=== PATIENT | male | born 1970 | race Caucasian/White ===

== ENCOUNTER → 2020-07-22 09:08 | Outpatient (CLI) | payer OTHER, MEDICAID, SELFPAY ==
--- NOTE | 2020-07-22 09:17 | DI.CT.S_ITS ---
PROCEDURE: CT SOFT TISSUE NECK WO/W CON INDICATIONS: Localized swelling, mass and lump, neck. The patient reported possible thyroid gland lesion. TECHNIQUE: Before and after the administration of intravenous contrast, 2.0 mm axial sections acquired through the neck and down to the saroj. Additional 2.0 mm coronal and sagittal reformats were generated of the contrast enhanced images. For radiation dose reduction, the following was used: automated exposure control. A CT surface marker was placed in the area of patient's clinical concern, right neck region anteriorly. This is located at approximately the junction of the middle and lower thirds of the neck and on axial imaging can be seen on series 2, image 50. COMPARISON: Outside Film, CT, CT SOFT TISSUE NECK WITH CONTRAST, 10/04/2018, 10:38. [facility], RG, CT SOFT TISSUE NECK WITH CONTRAST, 10/04/2018, 10:38. FINDINGS: Image quality: Excellent. Thyroid: Normal enhancement bilaterally, no mass or cyst is found. Lymph nodes: No enlarged lymph nodes seen throughout the neck. Vessels: Visualized vasculature appears patent. Neck spaces: The oropharynx, nasopharynx, and pharynx demonstrate no mucosal lesions. The vocal cords, false vocal cords, pyriform sinuses, epiglottis, vallecula, and tongue base all appear normal. Extramucosal spaces appear unremarkable. Glands: The parotid and submandibular glands appear normal. Below the inferior margin of the right parotid gland, just below the angle of the jaw on the right, there is a single identified apparent surgical clips noted on series 5, image 40, at the anterior border of the sternocleidomastoid muscle. Several small lymph nodes in that area are also present, symmetric in shape and size with those on the left. Miscellaneous: Visualized lungs appear clear. Superficial soft tissues appear normal. Bones: No suspicious bony lesions. Visualized sinuses and mastoids appear unremarkable. IMPRESSION: Through the salivary glands and salivary duct structures no calculus or inflammation, or dilated duct, is found. A CT surface marker was placed on the right as directed by the patient to the area of maximal clinical concern. Beneath this area no cystic or solid mass is found and no inflammatory process is identified. Single suspected surgical clip identified on the right, at the anterior border of the right sternocleidomastoid muscle, but this is below the level of the inferior tip of the right parotid gland and no adjacent inflammatory or neoplastic process is found. Dictated by: Keron Leroy M.D. on 07/22/2020 at 16:01 Approved by: Keron Leroy M.D. on 07/22/2020 at 16:10
== END ==
PROVIDERS: Referring Provider Otolaryngology; Visit Provider Otolaryngology
DX: R22.1 Localized swelling, mass and lump, neck (principal)
CPT/HCPCS: 70492; Q9967

== ENCOUNTER → 2022-12-13 08:43 | Outpatient (CLI) | payer OTHER, MEDICAID, SELFPAY ==
[2022-12-17 13:03] LABS: C1 Esterase Inhibitor 34 mg/dL (21-39)
[2022-12-19 11:49] LABS: C1 Esterase Inhibitor, Func 90 (.)
== END ==
PROVIDERS: Referring Provider Allergy & Immunology; Visit Provider Allergy & Immunology
DX: T78.3XXA Angioneurotic edema, initial encounter (principal)
CPT/HCPCS: 36415; 86160; 86161; 86832

== ENCOUNTER 2022-12-23 11:10 | Observation (INO) | payer OTHER, MEDICAID, SELFPAY ==
[2022-12-23] VITALS (10 sets, daily range): BP systolic 123–163; BP diastolic 71–89; PULSE 61–80; RESP 16–21; TEMP 35.9–36.4; O2SAT 93–97; BMI 36.6
--- NOTE | 2022-12-23 11:39 | DI.CT.S_ITS ---
PROCEDURE: CT SOFT TISSUE NECK W CON INDICATIONS: swelling TECHNIQUE: After the administration of intravenous contrast, 3.0 mm axial sections acquired from the sella to the aortic arch. Additional oblique axial 3.0 mm sections acquired through the pharynx. 3 mm thick coronal and sagittal reformats were generated. For radiation dose reduction, the following was used: automated exposure control. COMPARISON: None. FINDINGS: Image quality: Excellent. Lymph nodes: Asymmetric reactive right submental adenopathy. Vessels: Visualized vasculature appears patent. Neck spaces: Other neck spaces appear normal. Glands: In the region of the right submandibular gland, there is a peripherally enhancing, thick-walled fluid collection measuring roughly 1.9 x 2.3 x 2.8 cm. There is surrounding inflammation and edema. There is fascial thickening of the overlying platysma is well as mild enlargement and inflammation involving the right-sided strap muscles and sternocleidomastoid. The right submandibular gland itself is surgically absent. No radiodense stone is seen in the floor of the mouth. The right submandibular duct is dilated. The left submandibular gland and the visible portions of both parotid glands appear normal. The thyroid gland appears normal. Bones: No suspicious bony lesions. Dystrophic calcification in the dorsal soft tissues adjacent to the C5-6 level. Visualized sinuses and mastoids appear unremarkable. IMPRESSION: 1. Right submandibular region inflammatory fluid collections suspicious for abscess. The submandibular gland is surgically absent. The duct remains dilated and may be secondary to stasis of secretions, chronic duct stenosis, soft tissue mass, or non radiodense calculus. 2. Right submental adenopathy, presumably reactive. Dictated by: Rashida Wesley M.D. on 12/23/2022 at 11:33 Approved by: Rashida Wesley M.D. on 12/23/2022 at 11:47
[2022-12-23 11:48] LABS: Add Manual Diff / Slide Review NO; Basophils Absolute Auto 100 /uL (0-100); Basophils Percent Auto 0.7 % (0-2); Eosinophils Absolute Auto 100 /uL (0-450); Eosinophils Percent Auto 0.5 % (2-4); Hematocrit 43.6 % (41-53); Hemoglobin 14.9 g/dL (13.5-17.5); Lymphocytes Absolute Auto 3500 /uL (1100-4500); Lymphocytes Percent Auto 26.3 % (25-40); Mean Corpuscular HGB Conc 34.2 % (30-36); Mean Corpuscular Hemoglobin 29.5 PG (26-34); Mean Corpuscular Volume 86.2 fL (80-100); Monocytes Absolute Auto 800 /uL (0-900); Monocytes Percent Auto 6.2 % (3-14); Neutrophils Absolute Auto 8900 /uL (1500-7000); Neutrophils Percent Auto 66.3 % (50-75); Platelet Count 298 X10^3/uL (150-400); Red Blood Cell Count 5.05 X10^6/uL (4.5-5.9); White Blood Cell Count 13.5 X10^3/uL (4.5-11.0)
[2022-12-23 11:50] LABS: INR 1.1 (0.9-1.3); Prothrombin Time 12.4 SECONDS (10.1-12.7)
[2022-12-23 11:52] LABS: PTT Partial Thromboplastin Tim 27 SECONDS (26-36)
[2022-12-23 11:55] LABS: Alanine Aminotransferase 166 IU/L (<50); Albumin 4.4 g/dL (3.5-5.0); Albumin Globulin Ratio 1.3 (1.0-2.8); Alkaline Phosphatase 112 U/L (38-126); Aspartate Aminotransferase 64 IU/L (17-59); Bilirubin Total 1.1 mg/dL (0.2-1.3); Blood Urea Nitrogen 13 mg/dL (9-20); Calcium 9.7 mg/dL (8.4-10.2); Carbon Dioxide 27 mmol/L (22-32); Chloride 94 mmol/L (98-107); Estimated Glomerular Filt Rate > 60 mL/min (>60); Globulin 3.4 g/dL (1.7-4.1); HEMOLYSIS 38 (0-50); Magnesium 1.8 mg/dL (1.6-2.3); Potassium 3.9 mmol/L (3.4-5.1); Sodium 135 mmol/L (137-145); Total Protein 7.8 g/dL (6.3-8.2)
[2022-12-23 11:57] LABS: Glucose 560 mg/dL (70-100)
[2022-12-23] MEDS: SODIUM CHLORIDE 0.9% 1,000 ML 1000 ML IV ×2 (12:35→14:43)
[2022-12-23 13:22] LABS: Appearance Urine UA CLEAR; Bilirubin Urine UA NEGATIVE (NEGATIVE); Color Urine UA LT. YELLOW; Glucose Urine UA 3+ g/dL (Negative); Ketones Urine UA NEGATIVE (NEGATIVE); Leukocyte Esterase Urine UA NEGATIVE (NEGATIVE); Nitrite Urine UA NEGATIVE (Negative); Occult Blood Urine UA NEGATIVE (Negative); Protein Urine UA NEGATIVE (Negative); Specific Gravity Urine UA <=1.005 (1.000-1.035); Urobilinogen Urine UA 0.2 E.U./dL (0.2)
[2022-12-23 13:24] LABS: Lactate (Lactic Acid) 2.3 mmol/L (0.7-2.1)
[2022-12-23 13:25] LABS: Ketones (Beta-Hydroxybutyrate) 0.16 mmol/L (<0.27)
[2022-12-23 13:29] LABS: Bacteria Urine None Seen; Culture Indicated Urine Cult Not Indicated; RBC Urine None Seen (0-5/HPF); Urine Comments Microscopic Normal; WBC Urine None Seen (0-5/HPF)
[2022-12-23 13:44] LABS: Hemoglobin A1C% w Est Avg Glu 11.8 % (4.0-6.0)
--- NOTE | 2022-12-23 14:13 | ED.SKABFB ---
HPI - Skin/Abscess/Foreign Bdy General Chief complaint: Skin/Abscess/Foreign Body Stated complaint: swelling in neck Time Seen by Provider: 12/23/22 11:59 Source: patient Mode of arrival: Ambulatory Limitations: no limitations History of Present Illness HPI narrative: This is a 52-year-old male with history of intermittent angioedema I am prior salivary gland was stone that was removed in 2018. Patient states no known diabetes or other medical issues. Patient states he had his salivary gland on the right side removed in 2018 after there was a stone in place they were able to extract it so ultimately had to take the gland out itself. This was done at [facility]. Patient states he was doing well until about a month ago he started having increasing swelling over the area of his surgery that has been slowly increasing, patient states he does have a history of angioedema get swelling of his lips mouth and tongue, he will sometimes take oral dexamethasone up to 16 mg at a time. He states this does not feel like his angioedema it is very localized to the side of the neck, he presents today as it has been increasingly growing in size and becoming more painful. Patient states no fevers or chills. Patient does feel like it pushes a little bit on his airway inability to swallow but he is not actually feeling like he is having trouble with his swallowing, he states no voice changes. He states it does not feel difficult breathe similar to anything like his angioedema. He states it seems to be very slow in terms of progression. Denies chest pain, no shortness of breath, no nausea or vomiting, no numbness or tingling. No syncope. Patient does state he has been trying his dexamethasone to see if it helps and sometimes it will decrease the swelling a little bit. He has set up follow-up with Dr. 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 Gonzalez in [place], who states he has not had any dexamethasone for 24 hours but did take 60 mg then. Related Data Previous Rx's Medication Instructions Recorded triamcinolone acetonide 0.5 % 1 applic topical TID #15 grams 09/05/22 topical cream Allergies Allergy/AdvReac Type Severity Reaction Status Date / Time erythromycin base AdvReac Intermediate Abdominal Verified 12/23/22 13:44 Pain Review of Systems Review of Systems ROS Unobtainable: All systems reviewed & are unremarkable except as noted in HPI and below Patient History Social History Smoking Status: Former smoker Smoking Status: Former smoker Substance Use Type: does not use Exam Initial Vital Signs Initial Vital Signs: Vital Signs Temperature 97.5 F L 12/23/22 11:21 Pulse Rate 80 12/23/22 11:21 Respiratory Rate 16 12/23/22 11:21 Blood Pressure 163/80 H 12/23/22 11:21 Pulse Oximetry 97 12/23/22 11:21 Oxygen Delivery Method 12/23/22 11:21 Course Orders Ordered: ED Orders 12/23/22 11:30 Complete Blood Count AUTO DIFF Stat Comprehensive Metabolic Panel Stat Ketones (Beta-Hydroxybutyrate) Stat Lactate (Lactic Acid) Stat Magnesium Stat Partial Thromboplastin Time Stat Prothrombin Time INR Stat 12/23/22 11:39 CT soft tissue neck w con Stat 12/23/22 11:59 VBG [Venous Blood Gas] Stat 12/23/22 12:47 Urinalysis and Microscopic Stat 12/23/22 13:00 Hemoglobin A1C% w Est Avg Glu Stat 12/23/22 13:03 EKG-12 Lead Stat 12/23/22 16:23 Consult to Physician Stat 12/23/22 16:50 Blood Culture Stat Ondansetron HCl (Ondansetron 4 Mg/2 Ml Inj) 4 mg IV Q6HR PRN PRN Reason: Nausea And Vomiting Discontinued Medications Dexamethasone (Dexamethasone 10 Mg/Ml Vial) 10 mg IV NOW ONE Stop: 12/23/22 14:31 Last Admin: 12/23/22 14:36 Dose: 10 mg Documented By: MARILU Dexamethasone (Dexamethasone 10 Mg/Ml Vial) 10 mg IV NOW ONE Stop: 12/23/22 15:08 Last Admin: 12/23/22 16:47 Dose: 10 mg Sodium Chloride (Normal Saline 0.9%) 1,000 mls @ 1,000 mls/hr IV BOLUS ONE Stop: 12/23/22 12:58 Last Infusion: 12/23/22 14:42 Dose: 0 mls/hr Documented By: Admin: 12/23/22 12:35 Dose: 1,000 mls/hr Documented By: MARILU Ampicillin Sodium/Sulbactam (Sodium 3 gm/ Sodium Chloride) 100 mls @ 200 mls/hr IV NOW ONE Stop: 12/23/22 13:28 Last Admin: 12/23/22 14:33 Dose: 200 mls/hr Documented By: MARILU Sodium Chloride (Normal Saline 0.9%) 1,000 mls @ 1,000 mls/hr IV BOLUS ONE Stop: 12/23/22 15:33 Last Admin: 12/23/22 14:43 Dose: 1,000 mls/hr Documented By: MARILU Ketorolac Tromethamine (Ketorolac 30 Mg/Ml Vial) 15 mg IV NOW ONE Stop: 12/23/22 14:35 Last Admin: 12/23/22 14:45 Dose: 15 mg Documented By: MARLIU Morphine Sulfate (Morphine 4 Mg/Ml Inj) 4 mg IV NOW ONE Stop: 12/23/22 16:54 Consultations Consultation #1: Dr. Ashraf, ENT: He does recommend continue with Unasyn, he recommends observation overnight least 24 hours of antibiotics, can give a dose of dexamethasone 20 mg fluids NPO for possible drainage tomorrow but if patient is stable may be able to be seen outpatient. States Dr. Carrero he believes his on tomorrow and can see the patient. Does ask for call back if anything changes emergently overnight. Asked for patient to be admitted to the hospitalist based on his newly diagnosed diabetes Time: 15:06 Consultation #2: Dr. Scott, hospitalist: Vital Signs Vital signs: Vital Signs - 8 hr 12/23/22 11:21 12/23/22 12:49 12/23/22 12:50 Temperature 97.5 F L Pulse Rate 80 74 Respiratory Rate 16 Blood Pressure 163/80 H 123/84 Pulse Oximetry 97 95 Oxygen Delivery Method Room Air 12/23/22 12:50 Temperature Pulse Rate 79 Respiratory Rate Blood Pressure Pulse Oximetry 95 Oxygen Delivery Method MDM - Skin/Abscess/Foreign Bdy Lab Data Result diagrams: 12/23/22 11:30 12/23/22 11:30 Labs: Lab Results 12/23/22 12/23/22 12/23/22 Range/Units 11:30 11:30 11:30 WBC 13.5 H (4.5-11.0) X10^3/uL RBC 5.05 (4.5-5.9) X10^6/uL Hgb 14.9 (13.5-17.5) g/dL Hct 43.6 (41-53) % MCV 86.2 (80-100) fL MCH 29.5 (26-34) PG MCHC 34.2 (30-36) % RDW 13.0 (11.6-14.8) % Plt Count 298 (150-400) X10^3/uL Neut % (Auto) 66.3 (50-75) % Lymph % (Auto) 26.3 (25-40) % [place] % (Auto) 6.2 (3-14) % Eos % (Auto) 0.5 L (2-4) % Baso % (Auto) 0.7 (0-2) % Neut # (Auto) 8900 H (3117-8926) /uL Lymph # (Auto) 3500 (6599-5795) /uL [place] # (Auto) 800 (0-900) /uL Eos # (Auto) 100 (0-450) /uL Baso # (Auto) 100 (0-100) /uL PT 12.4 (10.1-12.7) SECONDS INR 1.1 (0.9-1.3) APTT 27 (26-36) SECONDS Sodium 135 L (137-145) mmol/L Potassium 3.9 (3.4-5.1) mmol/L Chloride 94 L (98-107) mmol/L Carbon Dioxide 27 (22-32) mmol/L BUN 13 (9-20) mg/dL Creatinine 0.59 L (0.66-1.25) mg/dL Estimated GFR > 60 (>60) mL/min BUN/Creatinine Ratio 22.0 (6-22) Glucose 560 H* (70-100) mg/dL Hemoglobin A1c (4.0-6.0) % Lactate (0.7-2.1) mmol/L Calcium 9.7 (8.4-10.2) mg/dL Magnesium 1.8 (1.6-2.3) mg/dL Total Bilirubin 1.1 (0.2-1.3) mg/dL AST 64 H (17-59) IU/L ALT 166 H (<50) IU/L Alkaline Phosphatase 112 (38-126) U/L Total Protein 7.8 (6.3-8.2) g/dL Albumin 4.4 (3.5-5.0) g/dL Globulin 3.4 (1.7-4.1) g/dL Albumin/Globulin Ratio 1.3 (1.0-2.8) Urine Color Urine Appearance Urine pH (4.5-8.0) Ur Specific [place] (1.000-1.035) Urine Protein (Negative) Urine Glucose (UA) (Negative) g/dL Urine Ketones (NEGATIVE) Urine Occult Blood (Negative) Urine Nitrate (Negative) Urine Bilirubin (NEGATIVE) Urine Urobilinogen (0.2) E.U./dL Ur Leukocyte Esterase (NEGATIVE) Urine RBC (0-5/HPF) Urine WBC (0-5/HPF) Urine Bacteria (None) Ur Culture Indicated? Micro UA Comment Ketones (<0.27) mmol/L 12/23/22 12/23/22 12/23/22 Range/Units 11:30 11:30 12:47 WBC (4.5-11.0) X10^3/uL RBC (4.5-5.9) X10^6/uL Hgb (13.5-17.5) g/dL Hct (41-53) % MCV (80-100) fL MCH (26-34) PG MCHC (30-36) % RDW (11.6-14.8) % Plt Count (150-400) X10^3/uL Neut % (Auto) (50-75) % Lymph % (Auto) (25-40) % [place] % (Auto) (3-14) % Eos % (Auto) (2-4) % Baso % (Auto) (0-2) % Neut # (Auto) (1370-8119) /uL Lymph # (Auto) (7844-8416) /uL [place] # (Auto) (0-900) /uL Eos # (Auto) (0-450) /uL Baso # (Auto) (0-100) /uL PT (10.1-12.7) SECONDS INR (0.9-1.3) APTT (26-36) SECONDS Sodium (137-145) mmol/L Potassium (3.4-5.1) mmol/L Chloride (98-107) mmol/L Carbon Dioxide (22-32) mmol/L BUN (9-20) mg/dL Creatinine (0.66-1.25) mg/dL Estimated GFR (>60) mL/min BUN/Creatinine Ratio (6-22) Glucose (70-100) mg/dL Hemoglobin A1c (4.0-6.0) % Lactate 2.3 H (0.7-2.1) mmol/L Calcium (8.4-10.2) mg/dL Magnesium (1.6-2.3) mg/dL Total Bilirubin (0.2-1.3) mg/dL AST (17-59) IU/L ALT (<50) IU/L Alkaline Phosphatase (38-126) U/L Total Protein (6.3-8.2) g/dL Albumin (3.5-5.0) g/dL Globulin (1.7-4.1) g/dL Albumin/Globulin Ratio (1.0-2.8) Urine Color Lt. yellow Urine Appearance Clear Urine pH 6.0 (4.5-8.0) Ur Specific [place] <=1.005 (1.000-1.035) Urine Protein Negative (Negative) Urine Glucose (UA) 3+ H (Negative) g/dL Urine Ketones Negative (NEGATIVE) Urine Occult Blood Negative (Negative) Urine Nitrate Negative (Negative) Urine Bilirubin Negative (NEGATIVE) Urine Urobilinogen 0.2 (0.2) E.U./dL Ur Leukocyte Esterase Negative (NEGATIVE) Urine RBC None seen (0-5/HPF) Urine WBC None seen (0-5/HPF) Urine Bacteria None seen (None) Ur Culture Indicated? Cult not indicated Micro UA Comment Microscopic normal Ketones 0.16 (<0.27) mmol/L 12/23/22 12/23/22 Range/Units 13:00 16:11 WBC (4.5-11.0) X10^3/uL RBC (4.5-5.9) X10^6/uL Hgb (13.5-17.5) g/dL Hct (41-53) % MCV (80-100) fL MCH (26-34) PG MCHC (30-36) % RDW (11.6-14.8) % Plt Count (150-400) X10^3/uL Neut % (Auto) (50-75) % Lymph % (Auto) (25-40) % [place] % (Auto) (3-14) % Eos % (Auto) (2-4) % Baso % (Auto) (0-2) % Neut # (Auto) (6020-6147) /uL Lymph # (Auto) (7536-8395) /uL [place] # (Auto) (0-900) /uL Eos # (Auto) (0-450) /uL Baso # (Auto) (0-100) /uL PT (10.1-12.7) SECONDS INR (0.9-1.3) APTT (26-36) SECONDS Sodium (137-145) mmol/L Potassium (3.4-5.1) mmol/L Chloride (98-107) mmol/L Carbon Dioxide (22-32) mmol/L BUN (9-20) mg/dL Creatinine (0.66-1.25) mg/dL Estimated GFR (>60) mL/min BUN/Creatinine Ratio (6-22) Glucose (70-100) mg/dL Hemoglobin A1c 11.8 H (4.0-6.0) % Lactate 0.9 (0.7-2.1) mmol/L Calcium (8.4-10.2) mg/dL Magnesium (1.6-2.3) mg/dL Total Bilirubin (0.2-1.3) mg/dL AST (17-59) IU/L ALT (<50) IU/L Alkaline Phosphatase (38-126) U/L Total Protein (6.3-8.2) g/dL Albumin (3.5-5.0) g/dL Globulin (1.7-4.1) g/dL Albumin/Globulin Ratio (1.0-2.8) Urine Color Urine Appearance Urine pH (4.5-8.0) Ur Specific [place] (1.000-1.035) Urine Protein (Negative) Urine Glucose (UA) (Negative) g/dL Urine Ketones (NEGATIVE) Urine Occult Blood (Negative) Urine Nitrate (Negative) Urine Bilirubin (NEGATIVE) Urine Urobilinogen (0.2) E.U./dL Ur Leukocyte Esterase (NEGATIVE) Urine RBC (0-5/HPF) Urine WBC (0-5/HPF) Urine Bacteria (None) Ur Culture Indicated? Micro UA Comment Ketones (<0.27) mmol/L Point of Care Testing Glucose POC 419 Urine Dip Bedside Urine Glucose 1000 mg/dl Bedside Urine Bilirubin - Negative Bedside Urine Ketone - Negative Urine Specific [place] 1.005 Bedside Urine Occult Blood - Negative Bedside Urine pH 6.0 Bedside Urine Protein - Negative Bedside Urine Urobilinogen - Negative Bedside Urine Nitrite - Negative Bedside Urine Leukocytes - Negative Esterase Imaging Data CT soft tissue neck: Radiologist's Impression: Dusty Velasco??52??M??1970 ? Allergy/Adv: erythromycin base Close Soft Tissue Neck CT (Signed) Rashida Wesley - 12/23/[address] (Signed) Keron Leroy - 07/22/20 [address]?[place] [address] CT Scan Report Signed Patient: Dusty Velasco MR#: [id number] : 1970 Acct:[id number] Age/Sex: 52 / M Date of Service: 12/23/22 Loc: ED Accession Number: [id number] ?? Procedure: CT soft tissue neck w con Ordering Provider: Miriam Palma D.O. PROCEDURE:? CT SOFT TISSUE NECK W CON ? INDICATIONS:? swelling ? TECHNIQUE:? After the administration of intravenous contrast, 3.0 mm axial sections acquired from the sella to the aortic arch.? Additional oblique axial 3.0 mm sections acquired through the pharynx.? 3 mm thick coronal and sagittal reformats were generated.? For radiation dose reduction, the following was used:? automated exposure control.? ? COMPARISON:? None. ? FINDINGS:? Image quality:? Excellent.? ? Lymph nodes:? Asymmetric reactive right submental adenopathy. ? Vessels:? Visualized vasculature appears patent.? ? Neck spaces:? Other neck spaces appear normal. ? Glands:? In the region of the right submandibular gland, there is a peripherally enhancing, thick-walled fluid collection measuring roughly 1.9 x 2.3 x 2.8 cm.? There is surrounding inflammation and edema.? There is fascial thickening of the overlying platysma is well as mild enlargement and inflammation involving the right-sided strap muscles and sternocleidomastoid.? The right submandibular gland itself is surgically absent.? No radiodense stone is seen in the floor of the mouth.? The right submandibular duct is dilated. ? The left submandibular gland and the visible portions of both parotid glands appear normal.? The thyroid gland appears normal.? ? Bones:? No suspicious bony lesions.? Dystrophic calcification in the dorsal soft tissues adjacent to the C5-6 level.? Visualized sinuses and mastoids appear unremarkable.? ? ? IMPRESSION:? ? 1. Right submandibular region inflammatory fluid collections suspicious for abscess.? The submandibular gland is surgically absent.? The duct remains dilated and may be secondary to stasis of secretions, chronic duct stenosis, soft tissue mass, or non radiodense calculus. ? 2. Right submental adenopathy, presumably reactive.? Dictated by: Rashida Wesley M.D. on 12/23/2022 at 11:33 ? ? Approved by: Rashida Wesley M.D. on 12/23/2022 at 11:47?? MDM Narrative Medical decision making narrative: This is a 52-year-old male appears to have a new lead diagnosed diabetes eyes glucose was 560 he does have an infection he has been taking dexamethasone intermittently but his A1c is 11. Patient is not on any daily medications. He does also appear to have an infection over the area of the right salivary gland the gland itself is gone there is no stone but has not abscess. Patient has a white count, this could possibly be somewhat reactive but that is with infection, his lactate was slightly elevated, renal function electrolytes are normal. No other significant organ dysfunction appreciated. Patient does not appear septic but based on the location felt appropriate to keep for IV antibiotics for at least 24 hours observation overnight with possible drainage in the OR with ENT in the morning. I spoke with Dr. Ashraf who agrees with plan with Unasyn to continue, can give a dose of 20 mg dexamethasone to assist with swelling, fluids and can be re-contacted if any acute changes overnight. At this time patient appears to have intact airway without any significant impingement or vascular involvement from his infection. Discussed with patient he is very reluctant to stay secondary to work concerns. We discussed that it would be against medical advice I do very much recommend that he stays. Patient and I discussed he states it increased in size quite a bit today and that there is potential for airway involvement this did block is airway kill him [place] and this is significant drive about 45 minutes. Patient contemplating about 20 30 minutes, patient is agreeable to staying. Discussed with Dr. Scott, hospitalist accepts for medical management with consult by ENT. Patient so far has been maintaining his airway without any issue does not show impingement on his imaging. He is having no issues with swallowing saliva secretions. He does not appear septic does have a leukocytosis but has not been tachycardic, no tachypnea, no hypotension. Patient received fluids 2 L total. Was started on Unasyn for antibiotic coverage. Discharge Plan Departure Patient Disposition: Admitted as Observation Clinical Impression: Abscess of neck Admit Date/Time: 12/23/22 16:23 Admit Provider: Stayc Scott
[2022-12-23] MEDS: AMPICILLIN/SULBACTAM 3 GM 3 GM in SODIUM CHLORIDE 0.9% 100 ML IV (14:33)
--- NOTE | 2022-12-23 14:35 | PC.NURSE ---
ENT Dr Ashraf [phone]
--- NOTE | 2022-12-23 14:35 | PC.NURSE ---
called and left message with regarding call for consult. ENT Dr Ashraf [phone]
[2022-12-23] MEDS: DEXAMETHASONE 10 MG/ML VIAL IV ×2 (14:36→16:47)
[2022-12-23] MEDS: KETOROLAC 30 MG/ML VIAL 15 MG IV (14:45)
[2022-12-23 15:14] LABS: Reflexed Lactate in 2 Hours Y
[2022-12-23 16:38] LABS: Lactate 2HR (Lactic Acid Rflx) 0.9 mmol/L (0.7-2.1)
[2022-12-23] MEDS: ONDANSETRON 4 MG/2 ML INJ IV (17:03)
[2022-12-23] MEDS: MORPHINE 4 MG/ML INJ IV (17:03)
--- NOTE | 2022-12-23 17:26 | PC.NURSE ---
Day shift: Pt in room from ED at approx 1726. VS WNL. RA 98%. Rt side neck area is swollen. He does state pain relief from the IV Morphine given in ED just prior to AC unit transfer. He is calm and cooperative. Oriented to room and call light. He also states he is very thirsty and very hungry. Per Dr Scott Pt to be NPO. Pt has been made aware of NPO status and why. Given water with the green sponge sticks for now. No s/s of any respiratory distress at this time.
--- NOTE | 2022-12-23 18:43 | PC.NURSE ---
Day shift: Per conversation over the phone with Dr Ashraf (ENT ) Pt to be NPO at midnight tonight (12/23/22). OK to eat and drink until that time. TAN Banuelos has been made aware of this.
--- NOTE | 2022-12-23 19:06 | P.HP_ITS ---
History of Present Illness History of Present Illness Date Patient Seen: 12/23/22 Time Patient Seen: 19:06 Chief complaint: swelling in neck Narrative: Dusty Velasco?is a 52-year-old male with history of intermittent angioedema and prior salivary gland and stone removed in 2018 presented to the ED with right sided swelling in his lower jaw and neck. Patient states no known diabetes or other medical problems.? Patient states he had his salivary gland on the right side removed in 2018 after there was a stone in place at [facility]. They were able to extract the stone and ultimately had to remove the gland out itself.? He states he was doing well until about a month ago he started having increasing swelling over the area of his surgery site and has been slowly increasing. He states he does have a history of angioedema, gets swelling of his lips mouth and tongue, he will sometimes take oral dexamethasone up to 16 mg at a time.? He states this does not feel like his angioedema it is very localized to the side of the neck, he presents today as it has been increasingly enlarging and becoming more painful.? Patient denies no fevers or chills.? Patient does feel like it pushes a little bit on his airway inability to swallow but he is not actually feeling like he is having trouble with his swallowing, he states no voice changes.? He states it does not feel difficult breathe similar to anything like his angioedema.? He states it seems to be very slow in terms of progression.? Denies chest pain, no shortness of breath, no nausea or vomiting, no numbness or tingling.? No syncope.? Patient does state he has been trying his dexamethasone to see if it helps and sometimes it will decrease the swelling a little bit.? He has set up follow-up with Dr. Carrero with ENT on January 23 and his supervisor matrix Dr. Gonzalez in [place], who states he has not had any dexamethasone for 24 hours but did take 60 mg then. He is currently being worked up for the angioedema, having just had labs drawn here at [place] about a week and a half ago, supervisor matrix's office contacted him for a virtual appointment tomorrow at 10:[address] of the soft tissue of the neck reported a right submandibular region inflammatory fluid collection suspicious for abscess and confirm absence of the submandibular gland. It also stated that the doctor remains dilated and maybe secondary to stasis of secretions, chronic duct stenosis, soft tissue mass or non radiodense calculus. It noted right submental adenopathy likely reactive. He is afebrile, blood pressure 123/71 heart rate 61 oxygen saturation 93% on room air he weighs 98 kg with a BMI of 36.6. WBC is elevated at 13.5 with a left shift of 8900, sodium was 135 chloride 94 creatinine 0.59 glucose 560 with an A1c of 11.8 AST 64 ALT 166 he has presence of glucose in his urine, normal ketones, COVID-19 PCR was not ordered in the ED and it is currently pending. Patient History Medical History (Updated 12/23/22 @ 18:59 by TAN Carrington) Angioedema Surgical History (Updated 12/24/22 @ 00:26 by TAN Carrington) Hx of submandibular gland removal Family & Social History Social History: household members spouse Prior Living Arrangements House Safety & Behavioral: Feels Safe in Current Yes Environment Been Physically Hurt or No Threatened By a Person Tobacco & Substance use: Smoking Status Never smoker alcohol intake current alcohol intake frequency holiday/special occasion Substance Use Type does not use Meds Home Medications and Allergies Allergies Allergy/AdvReac Type Severity Reaction Status Date / Time erythromycin base AdvReac Intermediate Abdominal Verified 12/23/22 13:44 Pain Review of Systems Review of Systems ROS: Yes All systems reviewed with the patient and are negative except as otherwise documented Exam Vital Signs (past 8 hours): - 12/23/22 11:21 12/23/22 12:49 12/23/22 12:50 Temperature 97.5 F L Pulse Rate 80 74 Respiratory Rate 16 Blood Pressure 163/80 H 123/84 Pulse Oximetry 97 95 Oxygen Delivery Method Room Air Oxygen Flow Rate 12/23/22 12:50 12/23/22 17:08 12/23/22 13:00 Temperature Pulse Rate 79 74 Respiratory Rate 18 Blood Pressure 138/75 144/89 H Pulse Oximetry 95 96 Oxygen Delivery Method Room Air Oxygen Flow Rate 12/23/22 13:00 12/23/22 13:30 12/23/22 13:30 Temperature Pulse Rate 75 72 Respiratory Rate 21 18 Blood Pressure 126/77 Pulse Oximetry 95 96 Oxygen Delivery Method Oxygen Flow Rate 12/23/22 14:00 12/23/22 14:00 12/23/22 14:30 Temperature Pulse Rate 73 Respiratory Rate 18 Blood Pressure 132/76 144/85 H Pulse Oximetry 95 Oxygen Delivery Method Oxygen Flow Rate 12/23/22 14:30 12/23/22 17:50 Temperature 97.5 F L Pulse Rate 76 62 Respiratory Rate 17 20 Blood Pressure 131/78 Pulse Oximetry 95 95 Oxygen Delivery Method Oxygen Flow Rate 0 Oxygen Delivery Method Room Air Oxygen Flow Rate 0 Narrative Exam Narrative: Gen: Alert, oriented, obese 52 y.o. male, NAD HEENT: normocephalic, atraumatic, conjunctiva clear, sclera non-icteric Neck: supple, full ROM, significant swelling from his lower jaw to his super clavicular line Resp: Lungs CTA, non-labored breathing CV: RRR, no murmur or rubs Abd: soft, non-tender, normoactive BTs Skin: no lesions or rashes, dry and intact Neuro: Alert and oriented X 4 w/no focal deficits. Speech clear and coherent. Extremities: moves all 4 extremities, is ambulatory, negative Carlos?s sign Psyche: normal mood and affect. Objective Labs Result Diagrams: 12/23/22 11:30 12/23/22 11:30 Labs: Laboratory Results - last 24 hr 12/23/22 12/23/22 12/23/22 11:30 11:30 11:30 WBC 13.5 H RBC 5.05 Hgb 14.9 Hct 43.6 MCV 86.2 MCH 29.5 MCHC 34.2 RDW 13.0 Plt Count 298 Neut % (Auto) 66.3 Lymph % (Auto) 26.3 Craven % (Auto) 6.2 Eos % (Auto) 0.5 L Baso % (Auto) 0.7 Neut # (Auto) 8900 H Lymph # (Auto) 3500 Craven # (Auto) 800 Eos # (Auto) 100 Baso # (Auto) 100 PT 12.4 INR 1.1 APTT 27 Sodium 135 L Potassium 3.9 Chloride 94 L Carbon Dioxide 27 BUN 13 Creatinine 0.59 L Estimated GFR > 60 BUN/Creatinine Ratio 22.0 Glucose 560 H* Hemoglobin A1c Lactate Calcium 9.7 Magnesium 1.8 Total Bilirubin 1.1 AST 64 H ALT 166 H Alkaline Phosphatase 112 Total Protein 7.8 Albumin 4.4 Globulin 3.4 Albumin/Globulin Ratio 1.3 Urine Color Urine Appearance Urine pH Ur Specific [place] Urine Protein Urine Glucose (UA) Urine Ketones Urine Occult Blood Urine Nitrate Urine Bilirubin Urine Urobilinogen Ur Leukocyte Esterase Urine RBC Urine WBC Urine Bacteria Ur Culture Indicated? Micro UA Comment Ketones 12/23/22 12/23/22 12/23/22 11:30 11:30 12:47 WBC RBC Hgb Hct MCV MCH MCHC RDW Plt Count Neut % (Auto) Lymph % (Auto) [place] % (Auto) Eos % (Auto) Baso % (Auto) Neut # (Auto) Lymph # (Auto) Cra[place] # (Auto) Eos # (Auto) Baso # (Auto) PT INR APTT Sodium Potassium Chloride Carbon Dioxide BUN Creatinine Estimated GFR BUN/Creatinine Ratio Glucose Hemoglobin A1c Lactate 2.3 H Calcium Magnesium Total Bilirubin AST ALT Alkaline Phosphatase Total Protein Albumin Globulin Albumin/Globulin Ratio Urine Color Lt. yellow Urine Appearance Clear Urine pH 6.0 Ur Specific [place] <=1.005 Urine Protein Negative Urine Glucose (UA) 3+ H Urine Ketones Negative Urine Occult Blood Negative Urine Nitrate Negative Urine Bilirubin Negative Urine Urobilinogen 0.2 Ur Leukocyte Esterase Negative Urine RBC None seen Urine WBC None seen Urine Bacteria None seen Ur Culture Indicated? Cult not indicated Micro UA Comment Microscopic normal Ketones 0.16 12/23/22 12/23/22 13:00 16:11 WBC RBC Hgb Hct MCV MCH MCHC RDW Plt Count Neut % (Auto) Lymph % (Auto) Craven % (Auto) Eos % (Auto) Baso % (Auto) Neut # (Auto) Lymph # (Auto) Craven # (Auto) Eos # (Auto) Baso # (Auto) PT INR APTT Sodium Potassium Chloride Carbon Dioxide BUN Creatinine Estimated GFR BUN/Creatinine Ratio Glucose Hemoglobin A1c 11.8 H Lactate 0.9 Calcium Magnesium Total Bilirubin AST ALT Alkaline Phosphatase Total Protein Albumin Globulin Albumin/Globulin Ratio Urine Color Urine Appearance Urine pH Ur Specific [place] Urine Protein Urine Glucose (UA) Urine Ketones Urine Occult Blood Urine Nitrate Urine Bilirubin Urine Urobilinogen Ur Leukocyte Esterase Urine RBC Urine WBC Urine Bacteria Ur Culture Indicated? Micro UA Comment Ketones Assessment & Plan Assessment & Plan narrative: Dusty Velasco is admitted for further evaluation and treatment of an abscess of his right submandibular abcess and new onset diabetes. Submandibular abscess * Continue IV Unasyn which was started in the ED 3 g q.6 hours * Dr. Carrero ENT will see the patient in the morning New diagnosis of diabetes * A1c is 11.8 * He is initiated on glargine 5 units b.i.d. and medium dose correctional insulin which will be changed to high dose * Diabetic education in the morning Risk stratification due to new diagnosis of diabetes * Patient has likely had elevated blood sugars however he has been having difficulties accessing primary care in the [facility] area * Lipid panel in the morning * Consider low-dose ARB. Due to patient's current angioedema lisinopril may not be a good option. Health care inequity/access * Requested discharge planning to assist patient in obtaining primary care, patient prefers to receive primary care and Diane Jacob. Other independent historians: non Discussion of results, plan of care with independent HCP/other ED provider Reviewed outside records: prior imaging studies VTE Prophylaxis: Wells risk score 0 X Bilateral SCDs Pharmacological VTE prophylaxis contraindicated in the setting of anticipated surgery. Patient is admitted to the inpatient service due to the severity of disease, risks of further disease progression and this stay is expected to exceed 2 midnights. FEN: IV fluids: saline lock, diet: diabetic carb control, then NPO past midnight, labs: CBC, C/BMP, liver enzymes, Mag, PT/INR Consultants Dr. Carrero, ENT, care and involvement in the patient?s care is appreciated. Dispo: probable d/c to home Code status: Full Code as discussed with the patient who identifies his as his surrogate and POA. [X] I have utilized all available immediate resources to obtain, update, or review of the patient's current medications VTE Deep Vein Thrombosis/Pulmonary Embolism Present on Admission: No MIPS - Admit I confirm the patient?s Advance Care Plan is present, Code status is documented, Surrogate decision maker is in patient?s record: Yes MIPS - DC The patient has current or prior documentation of left ventricular ejection fraction (LVEF) less than 40%, or moderate or severely depressed left ventricular systolic function.: No COVID-19 COVID-19 status: Negative Result date/Date tested (Pos, Neg/Pending): 12/24/22 Time Spent With Patient Critical Care time: I spent a total of [] minutes of critical care time on this patient's care today; this time is exclusive of procedural time.
[2022-12-23] MEDS: INSULIN LISPRO 100 UNIT/ML 3ML VIAL SUBCUT (21:04)
[2022-12-23] MEDS: INSULIN GLARGINE 100 UNIT/ML 3ML PEN SUBCUT (21:05)
[2022-12-24 00:10] LABS: COVID19 - ADMIT (NP swab/PCR) Negative (Negative)
[2022-12-24] MEDS: AMPICILLIN/SULBACTAM 3 GM 3 GM in SODIUM CHLORIDE 0.9% 100 ML IV ×3 (00:32→12:05)
[2022-12-24] MEDS: INSULIN LISPRO 100 UNIT/ML 3ML VIAL SUBCUT ×3 (00:33→12:17)
[2022-12-24] MEDS: OXYCODONE IR 10 MG TABLET PO (00:37)
[2022-12-24 05:45] LABS: Add Manual Diff / Slide Review NO; Basophils Absolute Auto 0 /uL (0-100); Basophils Percent Auto 0.3 % (0-2); Eosinophils Absolute Auto 0 /uL (0-450); Hematocrit 41.1 % (41-53); Hemoglobin 13.6 g/dL (13.5-17.5); Lymphocytes Absolute Auto 1700 /uL (1100-4500); Lymphocytes Percent Auto 14.3 % (25-40); Mean Corpuscular Hemoglobin 28.5 PG (26-34); Mean Corpuscular Volume 86.3 fL (80-100); Monocytes Absolute Auto 600 /uL (0-900); Monocytes Percent Auto 4.8 % (3-14); Neutrophils Absolute Auto 9500 /uL (1500-7000); Neutrophils Percent Auto 80.6 % (50-75); Platelet Count 303 X10^3/uL (150-400); Red Blood Cell Count 4.76 X10^6/uL (4.5-5.9); Red Cell Distribution Width 12.9 % (11.6-14.8); White Blood Cell Count 11.8 X10^3/uL (4.5-11.0)
[2022-12-24 05:49] LABS: INR 1.1 (0.9-1.3)
[2022-12-24 05:56] LABS: Alanine Aminotransferase 150 IU/L (<50); Albumin 3.8 g/dL (3.5-5.0); Albumin Globulin Ratio 1.2 (1.0-2.8); Alkaline Phosphatase 88 U/L (38-126); Aspartate Aminotransferase 60 IU/L (17-59); BUN Creatinine Ratio 33.3 (6-22); Bilirubin Total 0.7 mg/dL (0.2-1.3); Blood Urea Nitrogen 18 mg/dL (9-20); Calcium 9.3 mg/dL (8.4-10.2); Carbon Dioxide 24 mmol/L (22-32); Chloride 102 mmol/L (98-107); Estimated Glomerular Filt Rate > 60 mL/min (>60); Globulin 3.1 g/dL (1.7-4.1); Glucose 309 mg/dL (70-100); HEMOLYSIS < 15 (0-50); Potassium 4.4 mmol/L (3.4-5.1); Sodium 137 mmol/L (137-145); Total Protein 6.9 g/dL (6.3-8.2)
[2022-12-24 07:00] VITALS: BP 105/58; PULSE 60; RESP 21; TEMP 35.9; O2SAT 97
[2022-12-24] MEDS: DEXAMETHASONE 10 MG/ML VIAL IV (08:45)
[2022-12-24] MEDS: INSULIN GLARGINE 100 UNIT/ML 3ML PEN SUBCUT (08:45)
--- NOTE | 2022-12-24 08:57 | PC.NURSE ---
Assess- Patient is alert and oriented x4, he is anxious and states that he needs to go home and be with his puppy. Patient stated earlier that he was going to go no matter what at 1000. Dr. Yanez in and talked to patient. He is more calm and agreeable to wait and see Dr. Carrero. Patient states that he has a tele health appointment with Dr. [facility]. Set up wifi for patient so that he can do this. He is fully dressed and sitting in the chair.
--- NOTE | 2022-12-24 12:50 | DIET.CONS2 ---
Dietary Inpatient Consultation Note Admission Date: 12/23/2022 16:23 RD to meet with pt this afternoon for A1c >11. Pt has PCP visit in 3d for f/u to admission. Requesting DSME referral for outpatient DM education. Diet: 12/23/22 Breakfast Carbohydrate Consistent Diet Diet Modifications: Carbohydrate level: Large (4 CHO) Bedtime snack: Yes 12/25/22 00:01 NPO Diet Diet Modifications: NPO Type: NPO after Midnight Electronically Signed by: Tiffany De La Cruz 12/24/22 12:50 Clinical Dietitian [address] [address]
--- NOTE | 2022-12-24 14:07 | P.DS_ITS ---
History of Present Illness History of Present Illness Date Patient Seen: 12/24/22 Chief complaint: swelling in neck Narrative: Dusty Velasco?is a 52-year-old male with history of intermittent angioedema and prior salivary gland and stone removed in 2018 presented to the ED with right sided swelling in his lower jaw and neck.? Patient states no known diabetes or other medical problems. Interestingly his blood sugar was very high in his hemoglobin A1c has been measured at 11.8 and therefore his blood sugar control has not been good in the last 3 months. However this does coincide with taking dexamethasone intermittently for angioedema. Patient states he had his salivary gland on the right side removed in 2018 after there was a stone in place at [facility].? They were able to extract the stone and ultimately had to remove the gland out itself.? He states he was doing well until about a month ago he started having increasing swelling over the area of his surgery site and has been slowly increasing. He states he does have a history of angioedema, gets swelling of his lips mouth and tongue, he will sometimes take oral dexamethasone up to 16 mg at a time.? He states this does not feel like his angioedema it is very localized to the side of the neck, he presents today as it has been increasingly enlarging and becoming more painful.? Patient denied fevers or chills.? Patient does feel like it pushes a little bit on his airway inability to swallow but he is not actually feeling like he is having trouble with his swallowing, he states no voice changes.? He states it does not feel difficult to breathe similar to anything like his angioedema.? He states it seems to be very slow in terms of progression.? Denies chest pain, no shortness of breath, no nausea or vomiting, no numbness or tingling.? No syncope.? Patient does state he has been trying his dexamethasone to see if it helps and sometimes it will decrease the swelling a little bit.? He has set up follow-up with Dr. Carrero with ENT on January 23 and his part time receptionist Dr. Gonzalez in [place]. He has not had any dexamethasone for 24 hours prior to presentation but did take 60 mg then. He is currently being worked up for the angioedema, having just had labs drawn here at [place] about a week and a half ago, part time receptionist's office contacted him for a virtual appointment while in hospital. Discharge Providers Provider Date of admission: 12/23/22 16:23 Discharge Date: 12/24/22 Primary care physician: TAN Thomas establishing as new patient. Consults: 12/23/22 16:23 Consult to Physician Stat Comment: Consulting Provider: Claude Ashraf Reason for consultation: abscess right neck 12/23/22 19:01 Consult to Physician Routine Comment: Consulting Provider: Gerardo Carrero Reason for consultation: right submandibular abscess Has provider been notified: Yes 12/23/22 19:04 Consult to Dietitian, Adult Routine Comment: Reason For Exam: diabetic education Consult to Discharge Planning Routine Comment: Needs PCP for diabetic followup in [place] Discharge provider: Stacy Scott MD Summary Hospital Course Discharge Diagnosis: Submandibular abscess New diagnosis of diabetes, type 2 Hospital Course: Patient was provided with intravenous dexamethasone 10 mg daily during the hospital stay. As well ampicillin 3 g IV every 6 hours. Consult was placed to Dr. Carrero ENT. Glargine 5 mg subQ b.i.d. was provided lispro every 6 hours as needed with sliding scale. Ketorolac and morphine IV were available for pain control as well as oral [place] 5 mg/325 mg and oxycodone 10 mg tablets. In improved and patient is blood sugars began to decrease on a consistent basis. Once being discharged the dexamethasone will be discontinued for as needed on a as needed basis for angioedema. To help moisture control the patient will modify his diet to be meat, cheese, vegetables only until seen by TAN Thomas. For antibiotics on discharge will be Augmentin 500 mg/125 mg p.o. t.i.d.. For 10 days. Status at Discharge Cognitive/behavioral status at discharge: at baseline, oriented Functional status at discharge: independent ambulation Overall status at discharge: patient is progressing back to baseline Time Spent with Patient Time spent: Greater than 30 minutes Exam Vital Signs (past 8 hours): - 12/24/22 07:00 12/24/22 08:51 Temperature 96.7 F L Pulse Rate 60 Respiratory Rate 21 Blood Pressure 105/58 L Pulse Oximetry 97 Oxygen Delivery Method Room Air Oxygen Flow Rate 0 Oxygen Delivery Method Room Air Oxygen Flow Rate 0 Narrative Exam Narrative: HEENT: normocephalic, atraumatic, conjunctiva clear, sclera non-icteric Neck: supple, full ROM, significant swelling from his lower jaw to his super clavicular line Resp: Lungs CTA, non-labored breathing CV: RRR, no murmur or rubs Abd: soft, non-tender, normoactive BTs Skin: no lesions or rashes, dry and intact Neuro: Alert and oriented X 4 w/no focal deficits. Speech clear and coherent. Extremities: moves all 4 extremities, is ambulatory, negative Carlos?s sign Psyche: normal mood and affect. Objective Labs Result Diagrams: 12/24/22 05:29 12/24/22 05:29 Labs: Laboratory Results - last 24 hr 12/23/22 12/23/22 12/24/22 16:11 22:50 05:29 WBC 11.8 H RBC 4.76 Hgb 13.6 Hct 41.1 MCV 86.3 MCH 28.5 MCHC 33.0 RDW 12.9 Plt Count 303 Neut % (Auto) 80.6 H Lymph % (Auto) 14.3 L Garza % (Auto) 4.8 Eos % (Auto) 0.0 L Baso % (Auto) 0.3 Neut # (Auto) 9500 H Lymph # (Auto) 1700 Garza # (Auto) 600 Eos # (Auto) 0 Baso # (Auto) 0 PT INR Sodium Potassium Chloride Carbon Dioxide BUN Creatinine Estimated GFR BUN/Creatinine Ratio Glucose Lactate 0.9 Calcium Total Bilirubin AST ALT Alkaline Phosphatase Total Protein Albumin Globulin Albumin/Globulin Ratio SARS-CoV-2 (PCR) Negative 12/24/22 12/24/22 05:29 05:29 WBC RBC Hgb Hct MCV MCH MCHC RDW Plt Count Neut % (Auto) Lymph % (Auto) Garza % (Auto) Eos % (Auto) Baso % (Auto) Neut # (Auto) Lymph # (Auto) Garza # (Auto) Eos # (Auto) Baso # (Auto) PT 13.0 H INR 1.1 Sodium 137 Potassium 4.4 Chloride 102 Carbon Dioxide 24 BUN 18 Creatinine 0.54 L Estimated GFR > 60 BUN/Creatinine Ratio 33.3 H Glucose 309 H D Lactate Calcium 9.3 Total Bilirubin 0.7 AST 60 H ALT 150 H Alkaline Phosphatase 88 Total Protein 6.9 Albumin 3.8 Globulin 3.1 Albumin/Globulin Ratio 1.2 SARS-CoV-2 (PCR) [facility] Medical History (Updated 12/23/22 @ 18:59 by TAN Carrington) Angioedema Surgical History (Updated 12/24/22 @ 00:26 by TAN Carrington) Hx of submandibular gland removal Social History household members: spouse Smoking Status: Never smoker alcohol intake: current Discharge Plan Discharge Plan Patient Disposition: Home Provider Discharge Comment: Between now and seen Dillan Salgado TAN, that he should only eat meat cheese and vegetables and this means no bread no crackers no sweets. Discharge orders & Medications Prescriptions: New hydrocodone-acetaminophen 5-325 mg Tablet 1 tab PO Q4H PRN (Reason: Pain, Moderate (4-6)) Qty: 30 0RF amoxicillin-pot clavulanate [Augmentin] 500-125 mg tablet 1 tab PO TID Qty: 30 0RF Follow up/Referrals: Gerardo Carrero MD [Physician] - (Patient will go to office on December 24, 2022 and either see the physician or arrange for an appointment) Diet/Activity/Treatments Diet: Carb-consistent/Diabetic Diet comment: No bread, no crackles no sweets. Meat cheese and vegetables only currently Visit Report/Discharge Packet Instructions: Parotitis, Type 2 Diabetes, DI for Diabetes Type 2 Stand Alone Forms: Patient Portal/API, Stroke Signs & Symptoms Discharge Data Primary Care Provider: Miscellaneous,Doctor
--- NOTE | 2022-12-24 14:27 | CM.DANOTE ---
DCP Assessment: Patient is 52 yr old male who was admitted for neck swelling and Abscess. CM met with patient at the bedside and explained role patient was A&O x4 and stated understanding. Patient was fully dressed and sitting in his chair at time of meeting and wanting to go home. Patient currently lives in [facility] with his Nahomi who is his DPOA. Patient is independent with all ADLs and drives at his baseline. Patient was concerned during CM meeting about not having a PCP and needing follow up care about new Diagnosed Diabetes. Patient willing to wait to get PCP follow up appointments, Medications and Diabetes nutrition assessment and training prior to DC home. CM discussed PCP options with the patient and he stated he would rather see a provider associated with [facility] rather then one on [facility]. CM called [address] and [facility] to see who is available and taking new patients with [facility]. Provider Dillan MADDOX has availability for new patient appointment but not until August 28 2023 @ 10:30 AM. CM booked this appointment for the patient and spoke with the nuclear medicine officer and booked a hospital follow up appointment for this patient this week on December 26 2022 at 11:15Am. gave this information to the patient who stated understanding and was appreciative of the appointments. Insurance: [facility] and Medicaid PCP: need new one- plan Dillan MADDOX. DC plan: home with family when medically stable and follow up with new PCP on December 26 at 1115AM. Any Lord RNsql manager Discharge Planning/Care Management Advanced directive, confirm from FAMILY Start: 12/23/22 18:11 Freq: Q24H Status: Discharge Protocol: Document 12/23/22 18:25 YAD (Rec: 12/23/22 18:29 YAD [id number]) Co-signed By Christine Simon RN Advance Directive, confirm on record Time 18:28 Person contacted Pt Copy received No CM Discharge Assessment Start: 12/24/22 11:57 Freq: Status: Discharge Protocol: Document 12/24/22 11:57 HS (Rec: 12/24/22 12:09 HS [id number]) Discharge Planning Assessment Assigned Diamond Powder Technician Any Lord RNdie cutter operator DPOA/Assigned Designee Name Nahomi Velasco- Contact Information [phone] Advance Directives? Yes Advance Directives on File No History Provided By Patient,Medical Record Has Patient been admitted in last 30 No days? Prior Living Arrangements House Household Members spouse Type of transporation used prior to Drives own vehicle admit Independent with ADL's Yes Is patient alert and oriented? Yes Caregiver for Another No Comment patient needs New PCP and hospital follow up appointment Comment New PCP appointment set up for Aug 28 @ 1030am with Dillan MADDOX. Barriers to Discharge No Discharge Plan Home Referrals Initiated None needed Whiteboard Updated in Patient Room with Yes name and ext. # of Diamond Powder Technician Review Status In Process Next Review Type Continued Stay Review
[2022-12-27 14:32] LABS: Immunoglobulin E 399 IU/mL (6-495)
== END 2022-12-24 14:26 | disposition home or self-care (01) | DRG 115 ==
LOC: ED 16:23 → AC 16:25 → LABOR 17:45 → AC 12-24 09:40
PROVIDERS: Nurse Practitioner Family; Admitting Provider Neuromusculoskeletal Medicine, Sports Medicine; Emergency Provider Emergency Medicine; Referring Provider Emergency Medicine; Visit Provider Neuromusculoskeletal Medicine, Sports Medicine
DX: K12.2 Cellulitis and abscess of mouth (principal); T78.3XXA Angioneurotic edema, initial encounter; E11.9 Type 2 diabetes mellitus without complications; Z20.822 Contact with and (suspected) exposure to COVID-19
CPT/HCPCS: 36415; 70491; 80053; 81001; 81003; 82009; 82785; 82962; 83036; 83605; 83735; 85025; 85610; 85730; 86160; 87040; 87635; 93005; 96365; 96366; 96375; 96376; 99284; C9803; G0378; J0295; J1100; J1815; J1885; J2270; J2405; Q9967

== ENCOUNTER 2023-01-07 09:54 | Emergency (ER) | payer OTHER, MEDICAID, SELFPAY ==
[2022-12-23 17:52] VITALS: BMI 36.6
[2023-01-07 09:58] VITALS: BP 138/76; PULSE 63; RESP 18; TEMP 36.2; O2SAT 97; BMI 35.7
--- NOTE | 2023-01-07 10:06 | DI.CT.S_ITS ---
PROCEDURE: CT HEAD/BRAIN WO CON INDICATIONS: bilateral blurry vision since TECHNIQUE: Noncontrast 4.5 mm thick angled axial sections acquired from the foramen magnum to the vertex, with coronal and sagittal reformats. For radiation dose reduction, the following was used: automated exposure control, adjustment of mA and/or kV according to patient size. COMPARISON: [facility], CT, CT SOFT TISSUE NECK W CON, 12/23/2022, 11:46. FINDINGS: Image quality: Excellent. CSF spaces: Basal cisterns are patent. No extra-axial fluid collections. Ventricles are normal in size and shape. Brain: No midline shift. No intracranial masses or hemorrhage. Blancas-white matter interface is normal. Skull and face: Calvarium and visualized facial bones are intact, without suspicious lesions. Sinuses: Visualized sinuses and mastoids are clear. IMPRESSION: Normal noncontrast head CT, without a cause of the patient's presenting symptoms identified. No significant orbital abnormality can be seen. No occipital lobe abnormality is seen. If it would be helpful for clinical management decision making, please consider a dedicated brain MRI (without and with contrast) for further evaluation (assuming that there is no contraindication). Dictated by: Nitesh Carlton M.D. on 01/07/2023 at 9:44 Approved by: Nitesh Carlton M.D. on 01/07/2023 at 9:45
[2023-01-07 10:55] LABS: Add Manual Diff / Slide Review NO; Basophils Absolute Auto 100 /uL (0-100); Basophils Percent Auto 1.3 % (0-2); Eosinophils Absolute Auto 300 /uL (0-450); Eosinophils Percent Auto 3.8 % (2-4); Hematocrit 38.5 % (41-53); Hemoglobin 13.2 g/dL (13.5-17.5); Lymphocytes Absolute Auto 2400 /uL (1100-4500); Lymphocytes Percent Auto 34.1 % (25-40); Mean Corpuscular HGB Conc 34.2 % (30-36); Mean Corpuscular Hemoglobin 29.2 PG (26-34); Mean Corpuscular Volume 85.4 fL (80-100); Monocytes Absolute Auto 500 /uL (0-900); Neutrophils Absolute Auto 3700 /uL (1500-7000); Neutrophils Percent Auto 53.8 % (50-75); Platelet Count 272 X10^3/uL (150-400); Red Cell Distribution Width 12.7 % (11.6-14.8); White Blood Cell Count 6.9 X10^3/uL (4.5-11.0)
[2023-01-07 11:02] LABS: Alanine Aminotransferase 46 IU/L (<50); Albumin Globulin Ratio 1.3 (1.0-2.8); Alkaline Phosphatase 65 U/L (38-126); Aspartate Aminotransferase 34 IU/L (17-59); BUN Creatinine Ratio 18.9 (6-22); Bilirubin Total 0.7 mg/dL (0.2-1.3); Blood Urea Nitrogen 10 mg/dL (9-20); Calcium 9.2 mg/dL (8.4-10.2); Carbon Dioxide 24 mmol/L (22-32); Chloride 106 mmol/L (98-107); Estimated Glomerular Filt Rate > 60 mL/min (>60); Glucose 166 mg/dL (70-100); HEMOLYSIS < 15 (0-50); Lipase 96 U/L (23-300); Potassium 3.8 mmol/L (3.4-5.1); Sodium 139 mmol/L (137-145)
--- NOTE | 2023-01-07 11:14 | ED_ITS ---
HPI - General Adult General Chief complaint: Eye Problems Stated complaint: vision loss and blurred vision T-2 Time Seen by Provider: 01/07/23 11:01 Source: patient Mode of arrival: Ambulatory Limitations: no limitations History of Present Illness HPI narrative: Patient is a 52-year-old male here for evaluation of blurry vision. He states the symptoms started approximately 3 days ago. He did feel like it was a fairly sudden onset. He is no other associated symptoms. He states that it does incorporate both eyes. It is not double vision but blurry vision. It incorporates both far vision and near vision although he states he did purchase some reading glasses and noticed that this does improve his close vision. He recently was diagnosed with diabetes. He is not taking any of his diabetes medicines. He states he is cut sugar out of his diet and has been checking his blood sugars at home and they have been at the goal that was given to him which is less than 130. He also recently had an infection that was treated with antibiotics and also drainage by ENT. Reports no balance issues. No sinus co ngestion. No dizziness. Related Data Previous Rx's Medication Instructions Recorded blood sugar diagnostic (Truetrack #100 ea 12/26/22 Test strips) blood-glucose meter (TrueTrack 1 ea miscellaneous .COMPLEX #1 ea 12/26/22 Smart System kit) insulin glargine 100 unit/mL (3 10 unit (0.1 mL) SUBCUT QPM #15 mL 12/26/22 mL) subcutaneous pen (Lantus Solostar U-100 Insulin) lancets #100 ea 12/26/22 metformin 500 mg tablet 500 mg PO BID #180 tabs 12/26/22 Allergies Allergy/AdvReac Type Severity Reaction Status Date / Time erythromycin base AdvReac Intermediate Abdominal Verified 01/07/23 10:02 Pain Review of Systems Review of Systems ROS Unobtainable: All systems reviewed & are unremarkable except as noted in HPI and below Patient History Medical History Angioedema Diabetes type 2, uncontrolled Surgical History Hx of submandibular gland removal Social History household members: spouse Smoking Status: Never smoker alcohol intake: current Smoking Status: Never smoker alcohol intake frequency: holidays/special occasions only Substance Use Type: does not use Exam Initial Vital Signs Initial Vital Signs: Vital Signs Temperature 97.1 F L 01/07/23 09:58 Pulse Rate 63 01/07/23 09:58 Respiratory Rate 18 01/07/23 09:58 Blood Pressure 138/76 01/07/23 09:58 Pulse Oximetry 97 01/07/23 09:58 Oxygen Delivery Method 01/07/23 09:58 Const General: cooperative, comfortable, well developed and No ill appearing HENMT Head: normal to inspection and normocephalic Face and sinus: normal facial exam Mouth: oral mucosae normal Eyes General: Yes appearance normal, both eyes and all related structures Pupils: PERRL Resp Effort & Inspection: normal respiratory effort Cardio Rate: regular rate Skin General: no rashes or lesions noted Neuro General: patient alert, patient awake, patient oriented x3 and moves all extremities Cranial Nerves: CN's II-XI intact bilaterally Cognition: normal cognition Speech: speech normal Gait: normal gait Extrem General: normal to inspection and capillary refill normal Psych Appearance: grossly normal and well kempt Scores GCS Tameka coma scale eye opening: Spontaneous Tameka coma scale verbal response: Orientated Tameka coma scale motor response: Obey commands Harrison coma scale total score: 15 Course Orders Ordered: ED Orders 01/07/23 10:06 CT head/brain wo con Stat 01/07/23 10:26 Complete Blood Count AUTO DIFF Stat Comprehensive Metabolic Panel Stat Lipase Stat 01/07/23 11:20 MR stroke Stat Vital Signs Vital signs: Vital Signs - 8 hr 01/07/23 09:58 Temperature 97.1 F L Pulse Rate 63 Respiratory Rate 18 Blood Pressure 138/76 Pulse Oximetry 97 Oxygen Delivery Method Room Air Medical Decision Making Medical Records Medical records reviewed: Yes I reviewed the patient's medical records. Lab Data Lab results reviewed: Yes I reviewed the patient's lab results. 01/07/23 10:26 01/07/23 10:26 Labs: Lab Results 01/07/23 01/07/23 Range/Units 10:26 10:26 WBC 6.9 (4.5-11.0) X10^3/uL RBC 4.50 (4.5-5.9) X10^6/uL Hgb 13.2 L (13.5-17.5) g/dL Hct 38.5 L (41-53) % MCV 85.4 (80-100) fL MCH 29.2 (26-34) PG MCHC 34.2 (30-36) % RDW 12.7 (11.6-14.8) % Plt Count 272 (150-400) X10^3/uL Neut % (Auto) 53.8 (50-75) % Lymph % (Auto) 34.1 (25-40) % Coke % (Auto) 7.0 (3-14) % Eos % (Auto) 3.8 (2-4) % Baso % (Auto) 1.3 (0-2) % Neut # (Auto) 3700 (6882-9229) /uL Lymph # (Auto) 2400 (4772-2463) /uL Coke # (Auto) 500 (0-900) /uL Eos # (Auto) 300 (0-450) /uL Baso # (Auto) 100 (0-100) /uL Sodium 139 (137-145) mmol/L Potassium 3.8 (3.4-5.1) mmol/L Chloride 106 (98-107) mmol/L Carbon Dioxide 24 (22-32) mmol/L BUN 10 (9-20) mg/dL Creatinine 0.53 L (0.66-1.25) mg/dL Estimated GFR > 60 (>60) mL/min BUN/Creatinine Ratio 18.9 (6-22) Glucose 166 H (70-100) mg/dL Calcium 9.2 (8.4-10.2) mg/dL Total Bilirubin 0.7 (0.2-1.3) mg/dL AST 34 (17-59) IU/L ALT 46 (<50) IU/L Alkaline Phosphatase 65 (38-126) U/L Total Protein 7.0 (6.3-8.2) g/dL Albumin 4.0 (3.5-5.0) g/dL Globulin 3.0 (1.7-4.1) g/dL Albumin/Globulin Ratio 1.3 (1.0-2.8) Lipase 96 (23-300) U/L Imaging Data CT scan - head: Radiologist's Impression: [address] [address] [address] Scan Report Signed Patient: Dusty Velasco MR#: [id number] : 1970 Acct:[id number] Age/Sex: 52 / M Date of Service: 01/07/23 Loc: ED Accession Number: [id number] ?? Procedure: CT head/brain wo con Ordering Provider: Dusty Cooney D.O. PROCEDURE:? CT HEAD/BRAIN WO CON ? INDICATIONS:? bilateral blurry vision since ? TECHNIQUE:? Noncontrast 4.5 mm thick angled axial sections acquired from the foramen magnum to the vertex, with coronal and sagittal reformats.? For radiation dose reduction, the following was used:? automated exposure control, adjustment of mA and/or kV according to patient size.? ? COMPARISON:[facility], CT, CT SOFT TISSUE NECK W CON, 12/23/2022, 11:46. ? FINDINGS:? Image quality:? Excellent.? ? CSF spaces:? Basal cisterns are patent.? No extra-axial fluid collections.? Ventricles are normal in size and shape.? ? Brain:? No midline shift.? No intracranial masses or hemorrhage.? Blancas-white matter interface is normal.? ? Skull and face:? Calvarium and visualized facial bones are intact, without suspicious lesions.? ? Sinuses:? Visualized sinuses and mastoids are clear.? IMPRESSION:? Normal noncontrast head CT, without a cause of the patient's presenting symptoms identified. ? No significant orbital abnormality can be seen. ? No occipital lobe abnormality is seen. ? If it would be helpful for clinical management decision making, please consider a dedicated brain MRI (without and with contrast) for further evaluation (assuming that there is no contraindication).? ? Dictated by: Nitesh Carlton M.D. on 01/07/2023 at 9:44 ? ? Approved by: Nitesh Carlton M.D. on 01/07/2023 at 9:45? Brain MRI: Radiologist's Impression: Launch?[address] [address] Magnetic Resonance Report Signed Patient: Dusty Velasco MR#: [id number] : 1970 Acct:[id number] Age/Sex: 52 / M Date of Service: 01/07/23 Loc: ED Accession Number: [id number] ?? Procedure: MR stroke Ordering Provider: Dusty Cooney D.O. PROCEDURE:? MR STROKE Pre- and post-contrast brain MRI, non-contrast brain MR angiogram, pre- and postcontrast neck MR angiogram ? INDICATIONS:? Blurry/loss of vision ? TECHNIQUE:? Brain:? Noncontrast axial T1 spin echo, axial T2 fast spin echo, sagittal and axial FLAIR, coronal T2 fast spin echo, axial gradient echo, axial diffusion and ADC through the brain.? After the administration of contrast, axial 3D VIBE of the cranial vasculature and brain.? Brain MRA:? Non-contrast 3-D time of flight MR angiogram, with multiple nvkttqt-qqnlxetlk-tiqjythjph (MIP) reformats performed.? Neck MRA:? Axial and sagittal TruFISP through the neck.? Coronal dynamic MR angiogram during administration of contrast in the arterial and venous phases, with 3- dimenstional otsitkd-htpilltzr-lpobsmvmnf (MIP) reformats constructed from subtraction images.? ? COMPARISON:? None. ? FINDINGS:? Image quality:? Excellent.? ? BRAIN:? CSF spaces:? Ventricles are normal in size and shape.? Basal cisterns are p atent.? No extra-axial fluid collections.? Brain:? No intracranial bleeds or mass effects.? Blancas-white matter interface is normal.? Diffusion weighted images show no acute ischemic insults.? Brainstem appears normal.? Normal intravascular flow voids are present.? No abnormal intracranial enhancement.? Skull and face:? Calvarial marrow signal is normal.? Orbits appear normal.? Sinuses:? Sinuses and mastoids are clear.? ? BRAIN MR ANGIOGRAM:? Anterior circulation:? Intracranial internal carotid arteries are normal in size and enhancement.? The flow within the paired anterior cerebral arteries is normal and symmetric.? The flow within the middle cerebral arteries is normal and symmetric.? The anterior communicating artery is seen.? No stenoses, occlusions, or aneurysms.? Posterior circulation:? The visualized portions of the vertebral arteries demonstrate normal caliber, and join to form a normal appearing basilar artery.? Small incidental thin striations noted in proximal basilar The flow within the posterior cerebral arteries is normal and symmetric.? No stenoses, occlusions, or aneurysms.? ? NECK MR ANGIOGRAM:? Carotids:? Great vessels demonstrate a conventional anatomy as they arise from the aortic arch.? The origins of the common carotid arteries appear patent.? The calibers and courses of both common carotid arteries are normal.? The bifurcation regions appear normal bilaterally.? The internal carotid arteries demonstrate normal course and caliber. ? Posterior circulation:? The origins of the vertebral arteries appear patent.? More superior portions of both vertebral arteries demonstrate normal course and caliber, and join to form a normal appearing basilar artery.? Miscellaneous:? Subclavian arteries appear patent.? Pre-contrast images through the neck show no soft tissue abnormalities.? ? IMPRESSION:? ? Normal MRI brain without acute infarct, hemorrhage or mass lesion. ? Normal MR angiogram of the brain without large vessel occlusion, aneurysm vascular malformation.? ? Normal MR angiogram of the neck.? No significant stenosis. ? ? ? Approved by: Keith Enriquez M.D. on 01/07/2023 at 11:23? MDM Narrative Medical decision making narrative: Patient had a CT scan and an MRI that were negative for bleeds, masses, stroke. Visual acuity is noted. There is no signs of any infection. After his workup here in the emergency department patient does require further workup by optometry. He was informed of this. He was instructed that he needed to contact an director of recruitment and admissions for this. I advised that he continue to monitor his blood sugars at home. His vision changes could be because of his change in blood sugars recently. I have low suspicion for migraine. No indication for antibiotics. Will discharge patient home with return precautions. He expressed understanding and agreement. Discharge Plan Departure Patient Disposition: Home Clinical Impression: Blurred vision, bilateral Instructions: DI for Visual Field Disturbances Activity Restrictions/Additional Instructions: I do recommend that you follow-up with a director of recruitment and admissions/load mixer for further evaluation. You can try different reading glasses like we discussed. Return to the emergency department for new symptoms. Prescriptions: No Action insulin glargine [Lantus Solostar U-100 Insulin] 100 unit/mL (3 mL) insulin pen 10 unit SUBCUT QPM Qty: 15 2RF Rx Instructions: No taking metformin 500 mg tablet 500 mg PO BID Qty: 180 3RF Label Comments: Pt not taking metformin at this time. Rx Instructions: For first 2 weeks take only 1 tab daily and only increase to twice daily after side effects decrease blood-glucose meter [PROTEIN LOUNGE System] Kit 1 ea miscellaneous .COMPLEX Qty: 1 0RF Rx Instructions: 1 each as directed; check glucose level three times daily; (DME) Truetrack Test Strip See Rx Instructions .Route Qty: 100 3RF Rx Instructions: As directed, test glucose three times daily (DME) lancets Misc See Rx Instructions .Route Qty: 100 3RF Rx Instructions: As directed, test glucose three times a day Referrals: Dillan Salgado ARNP [Primary Care Provider] - Stand Alone Forms: Patient Portal/API
--- NOTE | 2023-01-07 11:20 | DI.MRI.S_ITS ---
PROCEDURE: MR STROKE Pre- and post-contrast brain MRI, non-contrast brain MR angiogram, pre- and postcontrast neck MR angiogram INDICATIONS: Blurry/loss of vision TECHNIQUE: Brain: Noncontrast axial T1 spin echo, axial T2 fast spin echo, sagittal and axial FLAIR, coronal T2 fast spin echo, axial gradient echo, axial diffusion and ADC through the brain. After the administration of contrast, axial 3D VIBE of the cranial vasculature and brain. Brain MRA: Non-contrast 3-D time of flight MR angiogram, with multiple skstrzc-rtzuwatgl-fmcmyujdpy (MIP) reformats performed. Neck MRA: Axial and sagittal TruFISP through the neck. Coronal dynamic MR angiogram during administration of contrast in the arterial and venous phases, with 3-dimenstional bbltnxg-ghobyrbbz-npcbxzmjuk (MIP) reformats constructed from subtraction images. COMPARISON: None. FINDINGS: Image quality: Excellent. BRAIN: CSF spaces: Ventricles are normal in size and shape. Basal cisterns are patent. No extra-axial fluid collections. Brain: No intracranial bleeds or mass effects. Blancas-white matter interface is normal. Diffusion weighted images show no acute ischemic insults. Brainstem appears normal. Normal intravascular flow voids are present. No abnormal intracranial enhancement. Skull and face: Calvarial marrow signal is normal. Orbits appear normal. Sinuses: Sinuses and mastoids are clear. BRAIN MR ANGIOGRAM: Anterior circulation: Intracranial internal carotid arteries are normal in size and enhancement. The flow within the paired anterior cerebral arteries is normal and symmetric. The flow within the middle cerebral arteries is normal and symmetric. The anterior communicating artery is seen. No stenoses, occlusions, or aneurysms. Posterior circulation: The visualized portions of the vertebral arteries demonstrate normal caliber, and join to form a normal appearing basilar artery. Small incidental thin striations noted in proximal basilar The flow within the posterior cerebral arteries is normal and symmetric. No stenoses, occlusions, or aneurysms. NECK MR ANGIOGRAM: Carotids: Great vessels demonstrate a conventional anatomy as they arise from the aortic arch. The origins of the common carotid arteries appear patent. The calibers and courses of both common carotid arteries are normal. The bifurcation regions appear normal bilaterally. The internal carotid arteries demonstrate normal course and caliber. Posterior circulation: The origins of the vertebral arteries appear patent. More superior portions of both vertebral arteries demonstrate normal course and caliber, and join to form a normal appearing basilar artery. Miscellaneous: Subclavian arteries appear patent. Pre-contrast images through the neck show no soft tissue abnormalities. IMPRESSION: Normal MRI brain without acute infarct, hemorrhage or mass lesion. Normal MR angiogram of the brain without large vessel occlusion, aneurysm vascular malformation. Normal MR angiogram of the neck. No significant stenosis. Approved by: Keith Enriquez M.D. on 01/07/2023 at 11:23
[2023-01-07 13:16] VITALS: BP 124/66; PULSE 62; O2SAT 95
== END 2023-01-07 13:16 | disposition home or self-care (01) ==
PROVIDERS: Emergency Provider Emergency Medicine; PCP Registered Nurse Diabetes Educator
DX: H53.8 Other visual disturbances (principal)
CPT/HCPCS: 36415; 70450; 70548; 70553; 80053; 83690; 85025; 99284; A9579

== ENCOUNTER 2023-02-03 09:56 | Emergency (ER) | payer OTHER, MEDICAID, SELFPAY ==
[2022-12-23 17:52] VITALS: BMI 36.6
[2023-02-03 10:25] VITALS: BP 140/86; PULSE 71; RESP 18; TEMP 36.6; O2SAT 98; BMI 34.9
[2023-02-03] MEDS: diazePAM 5 MG TABLET PO (11:59)
[2023-02-03] MEDS: HYDROCODONE/ACET 5/325 TABLET 2 TAB PO (12:20)
--- NOTE | 2023-02-03 12:26 | DI.RAD.S_ITS ---
PROCEDURE: XR LUMBAR SPINE MIN 4V INDICATIONS: Right sided low back pain TECHNIQUE: 5 views of the lumbar spine were acquired, including bilateral oblique views. COMPARISON: None. FINDINGS: Bones: 5 nonrib-bearing vertebrae are present. There is normal bony alignment. No vertebral body compression fractures. No suspicious bony lesions. Multilevel degenerative changes with anterior osteophytes. There is facet arthrosis in the lower lumbar spine. Soft tissues: Overlying bowel gas pattern is normal. No suspicious soft tissue calcifications. IMPRESSION: Multilevel degenerative changes and facet arthrosis. No acute abnormality. Dictated by: Mil Resendiz M.D. on 02/03/2023 at 13:54 Approved by: Mil Resendiz M.D. on 02/03/2023 at 13:56
--- NOTE | 2023-02-03 13:12 | ED_ITS ---
HPI - Back Pain/Injury <TAN Gomez - Last Filed: 02/03/23 15:00> General Chief Complaint: Back Pain/Injury Stated Complaint: back pain Time Seen by Provider: 02/03/23 11:24 Source: patient and family History of Present Illness HPI Narrative: 52-year-old male, never smoker with diabetes, presents to the emergency department with right-sided low back pain x2 days. Patient states that he awoke 2 days with this pain. Patient denies any extraneous activity the day before or any known injury to his lower back. Home treatment has included laying in bed, intermittent hot or cold compresses to the affected site and 2 doses of ib uprofen. Patient denies any loss of control of bowel or bladder or numbness and tingling of his legs. Patient states that he it is a sharp pain when bearing weight. Current pain level 7/10. Related Data Previous Rx's Medication Instructions Recorded blood sugar diagnostic (Truetrack #100 ea 12/26/22 Test strips) blood-glucose meter (TrueTrack 1 ea miscellaneous .COMPLEX #1 ea 12/26/22 Smart System kit) lancets #100 ea 12/26/22 metformin 500 mg tablet 500 mg PO BID #180 tabs 12/26/22 insulin glargine 100 unit/mL (3 10 unit (0.1 mL) SUBCUT QPM #15 mL 01/21/23 mL) subcutaneous pen (Lantus Solostar U-100 Insulin) hydrocodone 5 mg-acetaminophen 325 1 tab PO Q6H PRN pain #10 tabs 02/03/23 mg tablet lidocaine 5 % topical patch 1 patch topical DAILY #15 ea 02/03/23 (Lidoderm) Allergies Allergy/AdvReac Type Severity Reaction Status Date / Time erythromycin base AdvReac Intermediate Abdominal Verified 01/07/23 10:02 Pain Review of Systems <TAN Gomez - Last Filed: 02/03/23 15:00> Review of Systems Narrative: Narrative: See HPI. GENERAL: Denies chills, fatigue, fever, sweats. HEENT: Denies sinus pain, ear pain, sore throat, difficulty swallowing, dizziness. RESPIRATORY: Denies dyspnea, cough, wheezing, sputum. CARDIOVASCULAR: Denies chest pain, palpitations, edema. GASTROINTESTINAL: Denies nausea, vomiting, abdominal pain, diarrhea, constipation. : Denies dysuria, frequency, incontinence, hematuria, urinary retention, flank pain, loss of control of bowel or bladder. MSK: Denies weakness, joint pain, or bony pain. Endorses right-sided low back pain. SKIN: Denies rash, skin lesions, or pruritis. NEUROLOGIC: Denies weakness, dizziness, headache, numbness, confusion. PSYCHIATRIC: No concerning psychosocial issues. Patient History <TAN Gomez - Last Filed: 02/03/23 15:00> Medical History Angioedema Diabetes type 2, uncontrolled Surgical History Hx of submandibular gland removal Social History household members: spouse Smoking Status: Never smoker alcohol intake: current Smoking Status: Never smoker alcohol intake frequency: holidays/special occasions only Substance Use Type: does not use Exam <TAN Gomez - Last Filed: 02/03/23 15:00> Narrative Exam Narrative: Exam Narrative: GENERAL: This is a well-nourished, well-developed patient, in no acute distress. HEAD: Atraumatic. Normocephalic. EYES: Pupils equal round and reactive. No scleral icterus, injection or drainage. ENT: Nose without bleeding, purulent drainage. Airway patent. NECK: Trachea midline. No JVD. CARDIOVASCULAR: Regular rate and rhythm without murmurs, peripheral pulses intact, cap refill <2 sec. RESPIRATORY: Breath sounds equal and clear bilaterally. No wheezes, rales, or rhonchi. No cough. No increased respiratory effort. No accessory muscle use. GASTROINTESTINAL: Abdomen soft, non-tender, nondistended without guarding or rebound. No suprapubic pain. MSK: Moves all extremities. Neurovascularly intact. NEURO: A&O x 3. SKIN: Warm, dry, no rashes or lesions noted. BACK cooling pan tender but free of any obvious external abnormalities. There is no asymmetry, swelling, bruising or wound. There is no paraspinal tenderness or CVA tenderness. SI joints nontender. No pain over spinous processes. No symptoms of cauda equina such as saddle anesthesia. Sensation is grossly intact. ROM is limited due to pain. SLE is negative bilaterally. Reflexes 2-3 at patella and achilles bilaterally. Resistive strengths are within normal limits Gait is ataxic Initial Vital Signs Initial Vital Signs: Vital Signs Temperature 98 F 02/03/23 10:25 Pulse Rate 71 02/03/23 10:25 Respiratory Rate 18 02/03/23 10:25 Blood Pressure 140/86 02/03/23 10:25 Pulse Oximetry 98 02/03/23 10:25 Oxygen Delivery Method Room Air 02/03/23 10:25 Reviewed <Mary Schofield DO - Last Filed: 02/08/23 07:36> Initial Vital Signs Initial Vital Signs: Vital Signs Temperature 98 F 02/03/23 10:25 Pulse Rate 71 02/03/23 10:25 Respiratory Rate 18 02/03/23 10:25 Blood Pressure 140/86 02/03/23 10:25 Pulse Oximetry 98 02/03/23 10:25 Oxygen Delivery Method Room Air 02/03/23 10:25 Course <TAN Gomez - Last Filed: 02/03/23 15:00> Orders Ordered: Discontinued Medications Hydrocodone Bitart/Acetaminophen (Hydrocodone/Acet 5/325 Tablet) 2 tab PO NOW ONE Stop: 02/03/23 12:12 Last Admin: 02/03/23 12:20 Dose: 2 tab Documented By: TATUM Diazepam (Diazepam 5 Mg Tablet) 5 mg PO NOW ONE Stop: 02/03/23 11:25 Last Admin: 02/03/23 11:59 Dose: 5 mg Documented By: TATUM Ketorolac Tromethamine (Ketorolac 30 Mg/Ml Vial) 30 mg IM NOW ONE Stop: 02/03/23 11:25 Last Admin: 02/03/23 12:08 Dose: Not Given Documented By: TATUM Vital Signs Vital signs: Vital Signs - 8 hr 02/03/23 10:25 02/03/23 14:56 Temperature 98 F Pulse Rate 71 70 Respiratory Rate 18 16 Blood Pressure 140/86 139/78 Pulse Oximetry 98 99 Oxygen Delivery Method Room Air Room Air <Mary Schofield DO - Last Filed: 02/08/23 07:36> Orders Ordered: Discontinued Medications Hydrocodone Bitart/Acetaminophen (Hydrocodone/Acet 5/325 Tablet) 2 tab PO NOW ONE Stop: 02/03/23 12:12 Last Admin: 02/03/23 12:20 Dose: 2 tab Documented By: TATUM Diazepam (Diazepam 5 Mg Tablet) 5 mg PO NOW ONE Stop: 02/03/23 11:25 Last Admin: 02/03/23 11:59 Dose: 5 mg Documented By: TATUM Ketorolac Tromethamine (Ketorolac 30 Mg/Ml Vial) 30 mg IM NOW ONE Stop: 02/03/23 11:25 Last Admin: 02/03/23 12:08 Dose: Not Given Documented By: TATUM Vital Signs Vital signs: Vital Signs - 8 hr 02/03/23 10:25 02/03/23 14:56 Temperature 98 F Pulse Rate 71 70 Respiratory Rate 18 16 Blood Pressure 140/86 139/78 Pulse Oximetry 98 99 Oxygen Delivery Method Room Air Room Air MDM - Back Pain/Injury <TAN Gomez - Last Filed: 02/03/23 15:00> Differential Diagnosis Differential diagnosis: Likely lumbar radiculopathy, sciatica and strain of lumbar region Imaging Data Extremity x-ray #1: Radiologist's Impression: Close Lumbar Spine X-Ray (Signed) Mil Resendiz - 02/03/23 Launch?[place] [address] XRay Report Signed Patient: Dusty Velasco MR#: [id number] : 1970 Acct:[id number] Age/Sex: 52 / M Date of Service: 02/03/23 Loc: ED Accession Number: [id number] ?? Procedure: XR lumbar spine 2-3V Ordering Provider: Dusty Nash PROCEDURE:? XR LUMBAR SPINE MIN 4V ? INDICATIONS:? Right sided low back pain ? TECHNIQUE:? 5 views of the lumbar spine were acquired, including bilateral oblique views. ? ? COMPARISON:? None. ? FINDINGS:? ? Bones:? 5 nonrib-bearing vertebrae are present.? There is normal bony alignment.? No vertebral body compression fractures.? No suspicious bony lesions.? Multilevel degenerative changes with anterior osteophytes.? There is facet arthrosis in the lower lumbar spine. ? Soft tissues:? Overlying bowel gas pattern is normal.? No suspicious soft tissue calcifications.? ? IMPRESSION:? Multilevel degenerative changes and facet arthrosis.? No acute abnormality. ? ? Dictated by: Mil Resendiz M.D. on 02/03/2023 at 13:54 ? ? Approved by: Mil Resendiz M.D. on 02/03/2023 at 13:56 ? [facility] Narrative Medical decision making narrative: 52-year-old male presents to the emergency department with right lower back pain x2 days. No mechanism of injury. Prior to x-ray, patient was given [place] and Valium, which significantly decreased his discomfort. X-ray was normal (still awaiting radiologist read after several hours) - read by this provider and Dr. Schofield. Assessment was encouraging. Will treat with NSAIDs, muscle relaxers, topical patches and opioids for breakthrough pain. Discussed plan of care and return precautions with patient and spouse, who verbalized understanding and were agreeable with course of action. Consideration included that injury was non-traumatic, patient is not a IV drug user, no fever, neurovascular intact, no weakness, no signs of epidural abscess or saddle anesthesia. <Mary Schofield, DO - Last Filed: 02/08/23 07:36> Imaging Data Extremity x-ray #1: My Impression: No acute fracture or alignment Discharge Plan Departure Patient Disposition: Home Clinical Impression: Acute low back pain Instructions: DI for Low Back Pain Activity Restrictions/Additional Instructions: *You have been diagnosed with a low back strain. Your x-ray was negative and my assessment was encouraging. Treatment for a low back strain includes: Ibuprofen 800 mg 3 times a day with food for the next 3-5 days. Take the muscle relaxer, Robaxin, 3 times a day for the next 3 days. Use the lidocaine patches as needed and the Percocet for breakthrough pain. For any worsening symptoms that include loss of control of bowel or bladder, numbness and tingling of your legs, intolerable pain, chest pain, shortness of breath, please return to the emergency department immediately. Otherwise, please follow-up with your family doctor as needed. *What to do: *Please continue to take your regular medications as directed. [x ] New medication prescriptions sent to your pharmacy: [[facility] ] [ ] New medication written as a paper prescription [ ] No new medications given *Please follow up with your primary care provider in 2-3 days, call for an appointment. Let them know you were seen in the Emergency Department and that we ask that you be seen in follow up. We will electronically transmit a record of today's note if your PCP is in our system *If you do not have a primary care provider please contact the [facility] Resource line at [phone]. They will ask some questions about your medical history and help get you set up with a doctor in the community. ? Return to ER if you should have any new, worsening or concerning symptoms, such as worsening pain, severe headache, confusion, chest pain, difficulty breathing, fever greater than 101 F, shaking chills, persistent vomiting to the point that you cannot drink fluids, or other new or worsening symptoms. Prescriptions: New lidocaine [Lidoderm] 5 % adhesive patch,medicated 1 patch topical DAILY Qty: 15 0RF Rx Instructions: leave on most painful area for up to 12 hrs hydrocodone-acetaminophen 5-325 mg tablet 1 tab PO Q6H PRN (Reason: pain) Qty: 10 0RF No Action insulin glargine [Lantus Solostar U-100 Insulin] 100 unit/mL (3 mL) insulin pen 10 unit SUBCUT QPM Qty: 15 2RF metformin 500 mg tablet 500 mg PO BID Qty: 180 3RF Patient Comments: Pt not taking metformin at this time. Rx Instructions: For first 2 weeks take only 1 tab daily and only increase to twice daily after side effects decrease blood-glucose meter [TrueTrack Smart System] Kit 1 ea miscellaneous .COMPLEX Qty: 1 0RF Rx Instructions: 1 each as directed; check glucose level three times daily; (DME) Truetrack Test Strip See Rx Instructions .Route Qty: 100 3RF Rx Instructions: As directed, test glucose three times daily (DME) lancets Misc See Rx Instructions .Route Qty: 100 3RF Rx Instructions: As directed, test glucose three times a day Referrals: Dillan Salgado ARNP [Primary Care Provider] - Stand Alone Forms: Patient Portal/API <Mary Schofield DO - Last Filed: 02/08/23 07:36> Cosign ED Attending Cosignature Attestation: I was immediately available in the department for consultation. Documentation has been reviewed.
[2023-02-03 14:56] VITALS: BP 139/78; PULSE 70; RESP 16; O2SAT 99
== END 2023-02-03 15:02 | disposition home or self-care (01) ==
PROVIDERS: Emergency Provider Registered Nurse; Family Provider Registered Nurse Diabetes Educator; PCP Registered Nurse Diabetes Educator
DX: M54.50 Low back pain, unspecified (principal)
CPT/HCPCS: 72100; 99283; J1885

== ENCOUNTER → 2023-02-13 12:41 | Outpatient (CLI) | payer OTHER, MEDICAID, SELFPAY ==
[2022-12-23 17:52] VITALS: BMI 36.6
--- NOTE | 2023-02-15 13:46 | DIAB.FU ---
Initial Diabetes Education Assessment Name: RodDusty (Dylan) Date: 02/13/23 Time: Dx: Type II Diabetes Provider: Damian Dylan presents for initial visit newly diagnosed T2DM. Recent hospitalized for right submandibular abcess and new onset Dm. Was admitted with a BG of 560 mg/dl and HgA1c fo 11.8%. Endorses h/o reoccurring angioedema, tx with steroids, which certainly could exacerbate insulin resistance and hyperglycemia. States he wants to control with diet and exercise rather than medications.?Has rx for Metformin and insulin, not taking either currently. Sees PCP this afternoon and plans to discuss further. Has questions regarding medication needs and actions. +FH of Dm with maternal grandfather, not sure about parents. After hospitalization, Dylan noticed blurry vision, which is now almost back to baseline. Other hyperglycemia symptoms include, excessive thirst, excessive urination, and fatigue which have all mostly returned to baseline.? Since dx, has cut out juice, sugar in coffee, breads, and pasta Diet Recall: (diet changes) Wake: 6:30 am B: (6:30-7:00 am) 2-3 cups coffee with milk/cream. S: (11:00 am +/-) cheese sticks and carrots. L: (11:00-2:00 pm) leftovers.? D: (8:30-9:00 pm) meat or fish with vegetable or salad, occasional 1 cup brown rice.? S: SF chocolate and/or SF candy.? Bed: 10:00 pm? Fluid: ~48 oz water, milk, ICE beverage.? ETOH: 0-2 beverages/week. 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 Self-Monitoring Blood Glucose:was checking 1-2x/day after hospitalization, now checking every few days. reports a goal of 80-135. Reports checking at random times. Last 2-week average in 90s with occasional highs in 130s. Highest was 181 (non fasting).? Diabetes Medications: 500mg Metformin BID (not taking) 10u Glargine (not taking) Pertinent Labs: HgA1c: 11.8% (12/24) Past Medical History: (Last Reviewed 02/03/23 @ 13:15 by TAN Gomez) Angioedema Diabetes type 2, uncontrolled Intervention: This participant was very receptive. Provided appropriate educational handouts. Discussed the following topics: Completed intake assessment. Discussed barriers to care. Pathophysiology of type 2 diabetes HgA1c, its correlation to blood glucose numbers, and rationale for goal Importance of self-monitoring, how often, and when to check. Suggested checking at different times to evaluate meals Plate Method, impact of macronutrients on blood sugar, meal timing, carbohydrate counting, pairing macronutrients and spreading out carbohydrates for better blood glucose management General recommended servings for carbohydrates at meals and snacks Role of physical activity Benefits of Metformin early in diagnosis to reduce progression of Dm Action of Metformin and insulin. When medication would be indicated. Created SMART goals for patient self-care and success. Goals: Check BS 1-2x/day: FBG and a few 1-2 hour pc Consider consistent and intentional physical activity program Follow-up: SERGIO LANGFORD follow-up in 3-4 weeks. Dylan would likely benefit from Metformin given benefits, however he would like to try to manage without medications. Encouraged him to bring SMBG next visit for further discussion. He agreed. Yelitza Razo, SERGIO, [facility]ES Certified Diabetes Care and Human Services Program Specialist P: [phone] Thank you for this referral
== END ==
PROVIDERS: Absent Provider Registered Nurse Diabetes Educator; Family Provider Registered Nurse Diabetes Educator; PCP Registered Nurse Diabetes Educator; Referring Provider Registered Nurse Diabetes Educator; Visit Provider Registered Nurse Diabetes Educator
DX: E11.9 Type 2 diabetes mellitus without complications (principal); Z79.84 Long term (current) use of oral hypoglycemic drugs; Z79.4 Long term (current) use of insulin; Z71.3 Dietary counseling and surveillance
CPT/HCPCS: G0108

== ENCOUNTER → 2023-03-05 10:32 | Outpatient (CLI) | payer OTHER, MEDICAID, SELFPAY ==
[2022-12-23 17:52] VITALS: BMI 36.6
[2023-03-05 11:37] LABS: Appearance Urine UA CLEAR; Bilirubin Urine UA NEGATIVE (NEGATIVE); Color Urine UA YELLOW; Glucose Urine UA NEGATIVE (Negative); Ketones Urine UA NEGATIVE (NEGATIVE); Leukocyte Esterase Urine UA NEGATIVE (NEGATIVE); Nitrite Urine UA NEGATIVE (Negative); Occult Blood Urine UA NEGATIVE (Negative); Protein Urine UA NEGATIVE (Negative); Specific Gravity Urine UA 1.015 (1.000-1.035); pH Urine UA 5.5 (4.5-8.0)
[2023-03-05 11:40] LABS: Bacteria Urine None Seen; Culture Indicated Urine Cult Not Indicated; RBC Urine None Seen (0-5/HPF); Urine Comments Microscopic Normal; WBC Urine None Seen (0-5/HPF)
[2023-03-05 11:43] LABS: Creatinine Urine Random 117.8 mg/dL
[2023-03-05 11:48] LABS: Microalbumi Creatinin Ratio Ur 5.9 ug/mg CR (<30); Microalbumin Urine Random 0.7 mg/dL (0-1.6)
[2023-03-05 12:25] LABS: Add Manual Diff / Slide Review NO; Basophils Absolute Auto 100 /uL (0-100); Eosinophils Absolute Auto 200 /uL (0-450); Eosinophils Percent Auto 2.4 % (2-4); Hematocrit 43.5 % (41-53); Hemoglobin 14.4 g/dL (13.5-17.5); Lymphocytes Absolute Auto 2600 /uL (1100-4500); Mean Corpuscular HGB Conc 33.1 % (30-36); Mean Corpuscular Hemoglobin 28.9 PG (26-34); Mean Corpuscular Volume 87.1 fL (80-100); Monocytes Absolute Auto 400 /uL (0-900); Monocytes Percent Auto 6.4 % (3-14); Neutrophils Absolute Auto 3600 /uL (1500-7000); Neutrophils Percent Auto 52.2 % (50-75); Platelet Count 287 X10^3/uL (150-400); Red Blood Cell Count 4.99 X10^6/uL (4.5-5.9); Red Cell Distribution Width 13.4 % (11.6-14.8); White Blood Cell Count 6.9 X10^3/uL (4.5-11.0)
[2023-03-05 12:28] LABS: HEMOLYSIS < 15 (0-50)
[2023-03-05 12:39] LABS: Alanine Aminotransferase 39 IU/L (<50); Albumin 4.3 g/dL (3.5-5.0); Albumin Globulin Ratio 1.3 (1.0-2.8); Alkaline Phosphatase 62 U/L (38-126); Aspartate Aminotransferase 29 IU/L (17-59); BUN Creatinine Ratio 23.4 (6-22); Bilirubin Total 0.7 mg/dL (0.2-1.3); Blood Urea Nitrogen 15 mg/dL (9-20); Calcium 9.3 mg/dL (8.4-10.2); Carbon Dioxide 24 mmol/L (22-32); Chloride 107 mmol/L (98-107); Cholesterol 242 mg/dL (140-199); Estimated Glomerular Filt Rate > 60 mL/min (>60); Globulin 3.2 g/dL (1.7-4.1); Glucose 126 mg/dL (70-100); HDL Cholesterol 44 mg/dL (40-60); LDL Cholesterol Calculated 148 mg/dL (<100); Potassium 3.5 mmol/L (3.4-5.1); Sodium 139 mmol/L (137-145); Total Protein 7.5 g/dL (6.3-8.2); Triglycerides 251 mg/dL (35-150)
[2023-03-05 13:07] LABS: TSH w/ Reflex to FT4 2.31 uIU/mL (0.47-4.68)
[2023-03-06 05:38] LABS: Labcorp Hemoglobin (Hb) A1c 7.6 % (4.8-5.6)
== END ==
PROVIDERS: Family Provider Registered Nurse Diabetes Educator; PCP Registered Nurse Diabetes Educator; Referring Provider Registered Nurse Diabetes Educator; Visit Provider Registered Nurse Diabetes Educator
DX: Z00.00 Encounter for general adult medical examination without abnormal findings (principal); E11.65 Type 2 diabetes mellitus with hyperglycemia; Z79.4 Long term (current) use of insulin; R39.9 Unspecified symptoms and signs involving the genitourinary system
CPT/HCPCS: 36415; 80053; 80061; 81001; 82043; 82570; 83036; 84153; 84443; 85025

== ENCOUNTER → 2023-03-21 09:57 | Outpatient (CLI) | payer OTHER, MEDICAID, SELFPAY ==
[2022-12-23 17:52] VITALS: BMI 36.6
--- NOTE | 2023-03-21 10:52 | DIAB.MNTFU ---
Follow-up Diabetes Medical Nutrition Therapy Assessment Name: Dusty Velasco (Dylan) Date: 03/21/23 Time: 61-1861m Dx: Type II Diabetes Dylan presents for Dm follow-up with significant change in hgA1c from 11.8% to 7.6% in three months with lifestyle change alone. Lipid panel significant for elevated cholesterol and LDL and TG. Most of diet is protein and veggies. Most meats are lean, ie fish, game meats, some grassfed beef. Endorses cream in coffee and full fat dairy. No soda, juice. Has not had as much water recently, more coffee. States is doing keto, less brown rice at meals. Some berries and nuts. Overall, predicted low fiber intake. Has not started Metformin. Not currently on statin. Sees PCP today. Anthropometrics: Ht: 65 Wt: 101kg (222#) 01/2023 Physical Activity: Active at work. Has increased walking with puppy. Walking beaches 2-7 days per week. Self-Monitoring Blood Glucose: No log book for review. All FBG reported under 100mg/dl. Highest reading was pc after sandwich of 121mg/dl (in goal). He has questions regarding BG goals and A1c. Diabetes Medications: 500mg Metformin BID (not taking) 10u Glargine (not taking) Pertinent Labs: HgA1c: 7.6% (03/2023) 11.8% (12/24) Past Medical History: (Last Reviewed 02/17/23 @ 09:27 by TAN Thomas) Angioedema Diabetes type 2, uncontrolled Nutrition Rx: Fiber 30-35g per day Nutrition Diagnosis: Inadequate fiber intake r/t low carb diet aeb diet recall Predicted inadequate fluid intake r/t opting for coffee over water aeb pt report Intervention: This participant was very receptive. Provided appropriate educational handouts. Discussed the following topics: Blood sugar review and trends. ADA and AACE BG goals and aiming for under 7% HgA1c Impact of elevated HgA1c on complication risk over time If hgA1c not under 7% consideration for low dose Metformin Hyperlipidemia and risks associated. Heart health nutrition: fats, fiber Physical activity plan and progress Created SMART goals for patient self-care and success. Goals: Check BS 1-2x/day: FBG and a few 1-2 hour pc - met Consider consistent and intentional physical activity program- improved Add berries and nuts as morning snack- new Check out frozen brown rice- new Follow-up: SERGIO LANGFORD follow-up in Dec 2022. Offered sooner f/u but Dylan would like to wait at this time. States his family has a lot of medical appts etc and he feels he is overall doing well. We did discuss potential for low dose Metformin if HgA1c continues above 7% next labs and potential for medication if cholesterol continues above goal. Also discussed lifestyle changes to support reduction in lipids. Encouraged him to discuss further with PCP today. He agreed. Yelitza Razo, SERGIO, [facility][NOTE 3] Certified Diabetes Care and [employer] Tender P: [phone] Thank you for this referral
== END ==
PROVIDERS: Family Provider Registered Nurse Diabetes Educator; PCP Registered Nurse Diabetes Educator; Referring Provider Registered Nurse Diabetes Educator; Visit Provider Registered Nurse Diabetes Educator
DX: E11.9 Type 2 diabetes mellitus without complications (principal); Z71.3 Dietary counseling and surveillance
CPT/HCPCS: 97803